=== PATIENT | female | born 1960 | race Caucasian/White ===

== ENCOUNTER 2016-09-12 13:26 | Emergency (ER) | payer MEDICAID ==
[~2016-09-12] VITALS: Ht 157.5 cm; Wt 53.2 kg
[~2016-09-12 13:26] MED LIST: ACET325 PO; ALPR0.5T99 PO; BACT800T5 PO; BUSP5TAB3 PO; CEPH500C3 PO; CYMB30CA PO; IBUP800T23 PO; LAMO150 PO; LURA20TA PO; LYRI150C PO; PENT1TAB8 PO; PERC5TAB12 PO; REST15CA PO; TRAZ50TA4 PO
[2016-09-12 13:34] VITALS: BP 180/79; PULSE 98; RESP 18; TEMP 97.9
[2016-09-12] MEDS ORDERED: ONDANSETRON HCL 4 MG/2 ML VIAL IVP ONE (13:45)
[2016-09-12] MEDS ORDERED: MORPHINE SULFATE 4 MG/ML INJ IV PUSH ONE (13:45)
[2016-09-12] MEDS ORDERED: SODIUM CHLORIDE 0.9% FLUSH 5 ML FLUSH IVF PRN (13:45)
[2016-09-12] MEDS ORDERED: SODIUM CHLOR 0.9% 1000 ML INJ 1,000 ML IV SCH (13:45)
[2016-09-12 13:57] VITALS: BP 179/85; PULSE 98; RESP 18; TEMP 97.9; O2SAT 97
[2016-09-12 13:58] VITALS: O2SAT 97
[2016-09-12 14:27] LABS: AUTOMATED NEUTROPHIL # 4.5 TH/MM3 (1.8-7.7); BASOPHIL # 0.1 TH/MM3 (0-0.2); BASOPHIL % 1.1 % (0.0-2.0); EOSINOPHIL % 0.1 % (0.0-4.0); HEMATOCRIT 43.8 % (35.0-46.0); HEMO FLAGS DIFF FINAL; LYMPH % 19.5 % (9.0-44.0); LYMPHOCYTE # 1.2 TH/MM3 (1.0-4.8); MEAN CORPUSCULAR HEMOGLOBIN 30.5 PG (27.0-34.0); MEAN CORPUSCULAR HGB CONC 33.5 % (32.0-36.0); MONO % 8.2 % (0.0-8.0); NEUT % 71.1 % (16.0-70.0); PLATELET COUNT 271 TH/MM3 (150-450); RED BLOOD COUNT 4.81 MIL/MM3 (4.00-5.30); RED CELL DISTRIBUTION WIDTH 13.6 % (11.6-17.2); WHITE BLOOD COUNT 6.4 TH/MM3 (4.0-11.0)
[2016-09-12 14:30] VITALS: BP 164/87; PULSE 56; RESP 16; O2SAT 98
[2016-09-12] MEDS ORDERED: DIATRIZOATE MEGLUM/DIATRIZOATE SOD 9 ML CUP ONE (14:36)
[2016-09-12 14:44] LABS: ALT (GPT) 10 U/L (10-53); ANION GAP 16 MEQ/L (5-15); AST (GOT) 7 U/L (15-37); BICARBONATE 17.3 MEQ/L (21.0-32.0); BLOOD UREA NITROGEN 6 MG/DL (7-18); CHLORIDE 108 MEQ/L (98-107); GLOMERULAR FILTRATION RATE 93 ML/MIN (>89); POTASSIUM 3.5 MEQ/L (3.5-5.1); SODIUM (NA) 141 MEQ/L (136-145)
[2016-09-12 14:47] LABS: ALKALINE PHOSPHATASE 86 U/L (45-117); TOTAL BILIRUBIN ADULT 0.4 MG/DL (0.2-1.0)
[2016-09-12] MEDS ORDERED: CYMB30CA PO (15:25)
[2016-09-12] MEDS ORDERED: ALPR0.5T3 PO (15:25)
[2016-09-12] MEDS ORDERED: LYRI150C PO (15:25)
[2016-09-12] MEDS ORDERED: LURA20TA PO (15:25)
[2016-09-12] MEDS ORDERED: REST30CA PO (15:25)
[2016-09-12] MEDS ORDERED: BUSP5TAB PO (15:25)
[2016-09-12] MEDS ORDERED: LAMO150 PO (15:25)
[2016-09-12 15:32] LABS: BLOOD, URINE NEG (NEG); COMMENT (UR) CULT NOT INDICATED; CULTURE IF INDICATED CULT NOT INDICATED; GLUCOSE,URINE NEG (NEG); HYALINE CAST, URINE 2 /lpf (RARE); KETONE, URINE 150 mg/dL (NEG); MUCUS URINE FEW /lpf (OCC); NITRITE,URINE NEG (NEG); PH, URINE 5.5 (5.0-8.5); SQUAMOUS EPITHELIAL CELL URINE 3 /hpf (0-5); URINE COLOR YELLOW (YELLW/STRAW)
--- NOTE | 2016-09-12 15:43 | PD ---
HPI Chief Complaint: Abdominal Pain Time Seen by Provider: 13:41 Travel History International Travel<30 days: No Contact w/Intl Traveler<30days: No Traveled to known affect area: No History of Present Illness HPI Patient is a 55-year-old female presents emergency department with complaint of abdominal pain. Patient had a breast abscess around the right nipple in April. This was further treated with surgery in August. Patient states that ever since she has not felt well with generalized weakness, fatigue and malaise. For the last several days, 3-5 she has had diffuse crampy abdominal discomfort with nausea, vomiting. She has been having bowel movements, but states that these are smaller she has not been having much for oral intake. Anorexia. No hematemesis or hematochezia. Pain is crampy in nature. She's had a previous cholecystectomy and left salpingectomy oophorectomy. PFSH Past Medical History Hx Anticoagulant Therapy: No Bipolar Disorder: Yes Anxiety: Yes Depression: Yes Cancer: Yes (poss cervical) Cardiovascular Problems: Yes (HTN, CHOL) Diabetes: No Diminished Hearing: No Gastrointestinal Disorders: No Headaches: Yes Hypertension: No Implanted Vascular Access Dvce: No Musculoskeletal: Yes (chronic neck pain) ?: Not Menopausal: Yes : 0 Tubal Ligation: Yes Past Surgical History Cholecystectomy: Yes Neurologic Surgery: No Oral Surgery: Yes Tonsillectomy: Yes Other Surgery: Yes (left ovary removed) Social History Alcohol Use: No Tobacco Use: Yes Substance Use: No Allergies-Medications (Allergen,Severity, Reaction): Coded Allergies: Doxycycline (Verified Allergy, Severe, VOMITING, 09/12/16) Penicillin (Verified Allergy, Severe, FAMILY HISTORY ONLY! PATIENT HAS NO ACTUAL ALLERGY., 09/12/16) Darvocet-N 100 (Verified Adverse Reaction, Severe, N&V, 09/12/16) Reported Meds & Prescriptions Reported Meds & Active Scripts Active Phenergan (Promethazine HCl) 25 Mg Tab 25 Mg PO Q6H PRN Reported Restoril (Temazepam) 30 Mg Cap 30 Mg PO HS PRN Lyrica (Pregabalin) 150 Mg Cap 150 Mg PO BID Latuda (Lurasidone) 20 Mg Tab 20 Mg PO DAILY Lamictal (Lamotrigine) 150 Mg Tab 150 Mg PO BID Cymbalta DR (Duloxetine HCl) 30 Mg Capdr 30 Mg PO DAILY Buspirone (Buspirone HCl) 5 Mg Tab 5 Mg PO BID Alprazolam 0.5 Mg Tab 0.5 Mg PO Q6H PRN Review of Systems Except as stated in HPI: all other systems reviewed are Neg Physical Exam Narrative GENERAL: Well-appearing female in no acute distress SKIN: Warm and dry. Right breast with dried scab around the inferior aspect of the nipple but no erythema, fluctuance, mass. HEAD: Normocephalic. EYES: No scleral icterus. No injection or drainage. ENT: No nasal bleeding or discharge. Mucous membranes pink and moist. NECK: Supple CARDIOVASCULAR: Regular rate and rhythm. No murmur appreciated. RESPIRATORY: No accessory muscle use. Clear to auscultation. Breath sounds equal bilaterally. GASTROINTESTINAL: Abdomen soft, mild periumbilical abdominal tenderness to palpation without rebound or guarding, nondistended. No hepatosplenomegaly MUSCULOSKELETAL: No obvious deformities. No edema. NEUROLOGICAL: Awake and alert. Normal speech. PSYCHIATRIC: Appropriate mood and affect; insight and judgment normal. Data Data Last Documented VS Vital Signs Date Time Temp Pulse Resp B/P Pulse Ox O2 Delivery O2 Flow Rate FiO2 09/12/16 16:58 62 16 142/70 97 09/12/16 16:47 Room Air 09/12/16 13:57 97.9 Orders Complete Blood Count With Diff (09/12/16 13:45) Comprehensive Metabolic Panel (09/12/16 13:45) Lipase (09/12/16 13:45) Urinalysis - C+S If Indicated (09/12/16 13:45) Ct Abd/Pel W Iv Contrast(Rout) (09/12/16 13:45) Iv Access Insert/Monitor (09/12/16 13:45) Ecg Monitoring (09/12/16 13:45) Oximetry (09/12/16 13:45) Morphine Inj (Morphine Inj) (09/12/16 13:45) Ondansetron Inj (Zofran Inj) (09/12/16 13:45) Sodium Chlor 0.9% 1000 Ml Inj (Ns 1000 M (09/12/16 13:45) Sodium Chloride 0.9% Flush (Ns Flush) (09/12/16 13:45) Oral Contrast - Adult (09/12/16 13:48) Oral Contrast - Adult (09/12/16 14:22) Diatrizoate Liq (Md Llamas Liq) (09/12/16 14:36) Cath For Specimen (09/12/16 14:58) Iohexol 350 Inj (Omnipaque 350 Inj) (09/12/16 16:45) Ondansetron Inj (Zofran Inj) (09/12/16 17:00) Ketorolac Inj (Toradol Inj) (09/12/16 17:15) Labs Laboratory Tests Test 09/12/16 09/12/16 14:11 15:07 White Blood Count 6.4 TH/MM3 Red Blood Count 4.81 MIL/MM3 Hemoglobin 14.7 GM/DL Hematocrit 43.8 % Mean Corpuscular Volume 91.0 FL Mean Corpuscular Hemoglobin 30.5 PG Mean Corpuscular Hemoglobin 33.5 % Concent Red Cell Distribution Width 13.6 % Platelet Count 271 TH/MM3 Mean Platelet Volume 7.9 FL Neutrophils (%) (Auto) 71.1 % Lymphocytes (%) (Auto) 19.5 % Monocytes (%) (Auto) 8.2 % Eosinophils (%) (Auto) 0.1 % Basophils (%) (Auto) 1.1 % Neutrophils # (Auto) 4.5 TH/MM3 Lymphocytes # (Auto) 1.2 TH/MM3 Monocytes # (Auto) 0.5 TH/MM3 Eosinophils # (Auto) 0.0 TH/MM3 Basophils # (Auto) 0.1 TH/MM3 CBC Comment DIFF FINAL Differential Comment Sodium Level 141 MEQ/L Potassium Level 3.5 MEQ/L Chloride Level 108 MEQ/L Carbon Dioxide Level 17.3 MEQ/L Anion Gap 16 MEQ/L Blood Urea Nitrogen 6 MG/DL Creatinine 0.66 MG/DL Estimat Glomerular Filtration 93 ML/MIN Rate Random Glucose 70 MG/DL Calcium Level 8.5 MG/DL Total Bilirubin 0.4 MG/DL Aspartate Amino Transf 7 U/L (AST/SGOT) Alanine Aminotransferase 10 U/L (ALT/SGPT) Alkaline Phosphatase 86 U/L Total Protein 6.9 GM/DL Albumin 3.8 GM/DL Lipase 71 U/L Urine Color YELLOW Urine Turbidity CLEAR Urine pH 5.5 Urine Specific [place] 1.030 Urine Protein 30 mg/dL Urine Glucose (UA) NEG mg/dL Urine Ketones 150 mg/dL Urine Occult Blood NEG Urine Nitrite NEG Urine Bilirubin NEG Urine Urobilinogen LESS THAN 2.0 MG/DL Urine Leukocyte Esterase NEG Urine RBC 3 /hpf Urine WBC 2 /hpf Urine Squamous Epithelial 3 /hpf Cells Urine Hyaline Casts 2 /lpf Urine Mucus FEW /lpf Microscopic Urinalysis Comment CULT NOT INDICATED MDM Medical Decision Making Medical Screen Exam Complete: Yes Emergency Medical Condition: Yes Medical Record Reviewed: Yes Differential Diagnosis 55-year-old female with generalized fatigue, malaise, anorexia with nausea vomiting diarrhea and diffuse crampy abdominal discomfort for the last 3 days. Differential includes gastritis, pancreatitis, hepatobiliary pathology, appendicitis, bowel obstruction, gastroenteritis. Narrative Course Patient placed on monitor, IV established and blood obtained. Given 1 L normal saline bolus, 4 mg morphine, 4 mg Zofran. CBC, CMP, lipase, urinalysis were obtained and notable for mild acidosis with bicarbonate 17.3. CT abdomen and pelvis showed no acute abnormalities. There are several enhancing liver lesions measuring up to 15 mm, nonspecific but metastatic disease to be on the differential. Nodularity of the left adrenal gland. Scattered 12 mm or last hepatic hypodensities. Attempted further characterization with nonemergent MRI of the abdomen is recommended. Biliary distention, presumably reservoir type effect after cholecystectomy. Clinically there is no evidence of biliary obstruction, laboratory results are unremarkable. Patient was able to tolerate oral challenge and will be discharged home. Diagnosis Primary Impression: Abdominal pain Qualified Code: R10.84 - Generalized abdominal pain Additional Impressions: Nausea and vomiting Qualified Code: R11.2 - Non-intractable vomiting with nausea, unspecified vomiting type Liver lesion Referrals: Primary Care Physician call for appointment Additional Instructions: Nausea medications as prescribed. Follow-up for outpatient MRI of the abdomen to evaluate liver lesions as discussed. Your primary care physician can order this study. Med/Other Pt SpecificInfo: Prescription(s) given Scripts Dicyclomine (Bentyl)20 Mg Tab20 Mg PO TID PRN (Bowel Management) #15 TAB Ref 0 Prov:Liza Vaughn MD 09/12/16 Promethazine (Phenergan)25 Mg Tab25 Mg PO Q6H PRN (Nausea/Vomiting) #10 TAB Ref 0 Prov:Liza Vaughn MD 09/12/16 Disposition: 01 DISCHARGE HOME Condition: Stable Liza Vaughn MD Sep 12, 2016 15:43
[2016-09-12] MEDS ORDERED: IOHEXOL 350 MG/ML 10 ML VIAL (for RAD DIAG) IV ONE (16:45)
[2016-09-12 16:47] VITALS: BP 162/87; PULSE 84; RESP 18; O2SAT 96
[2016-09-12 16:58] VITALS: BP 142/70; PULSE 62; RESP 16; O2SAT 97
[2016-09-12] MEDS ORDERED: ONDANSETRON HCL 4 MG/2 ML VIAL IV PUSH ONE (17:00)
--- NOTE | 2016-09-12 17:06 | RADRPT ---
EXAM DATE/TIME: 09/12/2016 16:42 [facility] COMPARISON: No previous studies available for comparison. INDICATIONS : Abdomen pain. IV CONTRAST: 77 cc Omnipaque 350 (iohexol) IV ORAL CONTRAST: Partial prescribed oral contrast ingested. RADIATION DOSE: 4.78 CTDIvol (mGy) MEDICAL HISTORY : Hypertension. SURGICAL HISTORY : Cholecystectomy. Tubal ligation.Oophorectomy. ENCOUNTER: Initial ACUITY: 1 day PAIN SCALE: 5/10 LOCATION: Bilateral abdomen. TECHNIQUE: Volumetric scanning of the abdomen and pelvis was performed. Using automated exposure control and ad justment of the mA and/or kV according to patient size, radiation dose was kept as low as reasonably achievable to obtain optimal diagnostic quality images. FINDINGS: LOWER LUNGS: The visualized lower lungs are clear. LIVER: There hyperenhancing lesions of the liver, one measuring 15 mm posterior segment of the right hepatic lobe, 15 mm inferiorly of the anterior segment of the right hepatic lobe and 12 mm medial segment of the left hepatic lobe. There are several scattered hepatic hypodensities as well, the largest inferi frantz the right hepatic lobe measures about 14 mm in size. Patient has had previous cholecystectomy. C ommon bile duct measures 12 mm at the lower imelda hepatis and there is mild intrahepatic biliary dist ention seen as well. SPLEEN: Normal size without lesion. PANCREAS: Within normal limits. KIDNEYS: Normal in size and shape. There is no mass, stone or hydronephrosis. ADRENAL GLANDS: 11 x 18 mm nodularity of the left adrenal gland. Right adrenal gland is normal. VASCULAR: There is no aortic aneurysm. BOWEL/MESENTERY: The stomach, small bowel, and colon demonstrate no acute abnormality. There is no free intraperitone al air or fluid. ABDOMINAL WALL: Within normal limits. RETROPERITONEUM: There is no lymphadenopathy. BLADDER: No wall thickening or mass. REPRODUCTIVE: Within normal limits. INGUINAL: There is no lymphadenopathy or hernia. MUSCULOSKELETAL: No acute bony abnormality demonstrated. CONCLUSION: 1. No obstruction or acute inflammatory changes. 2. Several enhancing liver lesions measuring up to 15 mm in size, nonspecific but metastatic disease would be in the differential. There is also nodularity of the left adrenal gland. Scattered 12 mm or less hepatic hypodensities are also noted. Attempted further characterization with nonemergent MRI of the abdomen recommended. 3. Biliary distention, presumably reservoir type effect after cholecystectomy but please correlate cl inically and with any laboratory evidence of biliary obstruction. Reymundo Mclaughlin MD on September 12, 2016 at 16:59 Board Certified Radiologist. This report was verified electronically.
[2016-09-12] MEDS ORDERED: KETOROLAC TROMETHAMINE 30 MG/ML (IVP) VIAL IV PUSH ONE (17:15)
[2016-09-12] MEDS ORDERED: PROM25TA5 PO (17:29)
[2016-09-12] MEDS ORDERED: BENT20TA PO (17:49)
== END 2016-09-12 18:17 | disposition home or self-care (01) ==
LOC: NEPC 13:26
DX: R10.84 Generalized abdominal pain (principal); K76.9 Liver disease, unspecified; I10 Essential (primary) hypertension
CPT/HCPCS: 74177; 80053; 81001; 83690; 85025; 96361; 96374; 96375; 96376; 99284; J1885; J2270; J2405; J7030; Q9963; Q9967

== ENCOUNTER 2016-11-07 10:55 | Inpatient (IN) | payer MEDICAID ==
[~2016-11-07] VITALS: Ht 157.5 cm; Wt 53.0 kg
[~2016-11-07 10:55] MED LIST changes: -ACET325 PO; +ALPR0.5T3 PO; -ALPR0.5T99 PO; -BACT800T5 PO; +BENT20TA PO; +BUSP5TAB PO; -BUSP5TAB3 PO; -CEPH500C3 PO; -IBUP800T23 PO; -PENT1TAB8 PO; -PERC5TAB12 PO; +PROM25TA5 PO; -REST15CA PO; +REST30CA PO; -TRAZ50TA4 PO
[2016-11-07 10:58] VITALS: BP 162/84; PULSE 64; RESP 26; TEMP 97.8; O2SAT 97
--- NOTE | 2016-11-07 11:09 | PD ---
HPI Chief Complaint: GI Complaint Time Seen by Provider: 11:09 Travel History International Travel<30 days: No Contact w/Intl Traveler<30days: No Traveled to known affect area: No History of Present Illness HPI 56-year-old female PMH of anxiety, chronic back pain presents to the ED for evaluation of less than 24 hour history of abdominal pain, nausea, nonbloody, nonbilious vomiting, diarrhea. Patient states that symptoms onset last night after eating "a piece of meat my sister cooked." She endorses decreased appetite, malaise. She denies fever, chills, chest pain, palpitations, dysuria , melena or hematochezia. Last episode of vomiting around 10 AM. Patient also complains of pain of the right areola. She states that she had a cyst removed and is concerned that she may have an infection in the wound. Patient states she's been unable to take any of her medications today. She tried taking a dose of Phenergan last night but states that she immediately threw it up. PFSH Past Medical History Hx Anticoagulant Therapy: No Bipolar Disorder: Yes Anxiety: Yes Depression: Yes Cancer: Yes (poss cervical) Cardiovascular Problems: Yes (HTN, CHOL) Diabetes: No Diminished Hearing: No Gastrointestinal Disorders: No Headaches: Yes Hypertension: No Implanted Vascular Access Dvce: No Musculoskeletal: Yes (chronic neck pain) Menopausal: Yes : 0 Tubal Ligation: Yes Past Surgical History Cholecystectomy: Yes Hysterectomy: Yes (PARTIAL ) Neurologic Surgery: No Oral Surgery: Yes Tonsillectomy: Yes Other Surgery: Yes (left ovary removed) Social History Alcohol Use: No Tobacco Use: Yes Substance Use: No Allergies-Medications (Allergen,Severity, Reaction): Coded Allergies: Doxycycline (Verified Allergy, Severe, VOMITING, 11/07/16) Penicillin (Verified Allergy, Severe, FAMILY HISTORY ONLY! PATIENT HAS NO ACTUAL ALLERGY., 11/07/16) Darvocet-N 100 (Verified Adverse Reaction, Severe, N&V, 11/07/16) Reported Meds & Prescriptions Reported Meds & Active Scripts Active Bentyl (Dicyclomine HCl) 20 Mg Tab 20 Mg PO TID PRN Phenergan (Promethazine HCl) 25 Mg Tab 25 Mg PO Q6H PRN Reported [Codeine With Tylenol] Restoril (Temazepam) 30 Mg Cap 30 Mg PO HS PRN Lyrica (Pregabalin) 150 Mg Cap 150 Mg PO BID Latuda (Lurasidone) 20 Mg Tab 20 Mg PO DAILY Lamictal (Lamotrigine) 150 Mg Tab 150 Mg PO BID Cymbalta DR (Duloxetine HCl) 30 Mg Capdr 30 Mg PO DAILY Buspirone (Buspirone HCl) 5 Mg Tab 5 Mg PO BID Alprazolam 0.5 Mg Tab 0.5 Mg PO Q6H PRN Review of Systems Except as stated in HPI: all other systems reviewed are Neg Physical Exam Narrative GENERAL: Well-nourished, well-developed petite, anxious white female in no acute distress. SKIN: Warm and dry. There is a well healing circumareolar scar of the right breast. No erythema, tenderness, warmth, drainage. HEAD: Normocephalic. EYES: No scleral icterus. No injection or drainage. PERRLA. EOMI. ENT: Oropharynx dry. No erythema or edema. NECK: Supple, trachea midline. No JVD or lymphadenopathy. No midline tenderness to palpation. No limitations to range of motion. CARDIOVASCULAR: Regular rate and rhythm without murmurs, gallops, or rubs. 2+ DP and radial pulses bilaterally. RESPIRATORY: Breath sounds clear and equal bilaterally. No accessory muscle use. GASTROINTESTINAL: Abdomen soft, non-tender, nondistended. Hypoactive bowel sounds. MUSCULOSKELETAL: No cyanosis, or edema. NEUROLOGICAL: Awake and alert. Cranial nerves II through XII intact. Motor and sensory grossly within normal limits. Five out of 5 muscle strength in all muscle groups. Normal speech. BACK: No obvious deformity. No CVA tenderness. No midline tenderness. Tender to palpation of the paraspinal musculature in the mid thoracic area. Data Data Last Documented VS Vital Signs Date Time Temp Pulse Resp B/P Pulse Ox O2 Delivery O2 Flow Rate FiO2 11/07/16 13:21 59 24 180/77 96 Room Air 11/07/16 10:58 97.8 Orders Complete Blood Count With Diff (11/07/16 11:23) Comprehensive Metabolic Panel (11/07/16 11:23) Lipase (11/07/16 11:23) Lactic Acid (11/07/16 11:23) Urinalysis - C+S If Indicated (11/07/16 11:23) Iv Access Insert/Monitor (11/07/16 11:23) Ecg Monitoring (11/07/16 11:23) Oximetry (11/07/16 11:23) Sodium Chlor 0.9% 1000 Ml Inj (Ns 1000 M (11/07/16 11:23) Sodium Chloride 0.9% Flush (Ns Flush) (11/07/16 11:30) Potassium Chlor 20 Meq Premix (Kcl 20 Me (11/07/16 12:30) Potassium Chloride (Kcl) (11/07/16 12:30) Calcium Carbonate Chew (Tums Chew) (11/07/16 12:30) Tramadol (Ultram) (11/07/16 13:00) Sodium Chlor 0.9% 1... W/Potassium Chlor (11/07/16 14:00) Ondansetron Inj (Zofran Inj) (11/07/16 14:00) Vital Signs (Adult) EFRAIN.Q4H (11/07/16 13:51) Basic Metabolic Panel (Bmp) (11/07/16 15:00) Labs Laboratory Tests Test 11/07/16 11/07/16 11:20 12:05 White Blood Count 8.2 TH/MM3 Red Blood Count 4.85 MIL/MM3 Hemoglobin 15.0 GM/DL Hematocrit 44.1 % Mean Corpuscular Volume 91.0 FL Mean Corpuscular Hemoglobin 31.0 PG Mean Corpuscular Hemoglobin 34.1 % Concent Red Cell Distribution Width 13.2 % Platelet Count 320 TH/MM3 Mean Platelet Volume 8.4 FL Neutrophils (%) (Auto) 80.9 % Lymphocytes (%) (Auto) 15.0 % Monocytes (%) (Auto) 3.6 % Eosinophils (%) (Auto) 0.0 % Basophils (%) (Auto) 0.5 % Neutrophils # (Auto) 6.7 TH/MM3 Lymphocytes # (Auto) 1.2 TH/MM3 Monocytes # (Auto) 0.3 TH/MM3 Eosinophils # (Auto) 0.0 TH/MM3 Basophils # (Auto) 0.0 TH/MM3 CBC Comment DIFF FINAL Differential Comment Sodium Level 148 MEQ/L Potassium Level 2.0 MEQ/L Chloride Level 120 MEQ/L Carbon Dioxide Level 15.6 MEQ/L Anion Gap 12 MEQ/L Blood Urea Nitrogen 10 MG/DL Creatinine 0.29 MG/DL Estimat Glomerular Filtration 238 ML/MIN Rate Random Glucose 74 MG/DL Lactic Acid Level 1.9 mmol/L Calcium Level 5.2 MG/DL Protein Corrected Calcium 6.4 MG/DL Total Bilirubin 0.2 MG/DL Aspartate Amino Transf 4 U/L (AST/SGOT) Alanine Aminotransferase 7 U/L (ALT/SGPT) Alkaline Phosphatase 50 U/L Total Protein 4.3 GM/DL Albumin 2.3 GM/DL Lipase 65 U/L Urine Color YELLOW Urine Turbidity HAZY Urine pH 6.0 Urine Specific [place] 1.023 Urine Protein 30 mg/dL Urine Glucose (UA) NEG mg/dL Urine Ketones 150 mg/dL Urine Occult Blood SMALL Urine Nitrite NEG Urine Bilirubin NEG Urine Urobilinogen 2.0 MG/DL Urine Leukocyte Esterase NEG Urine RBC 6 /hpf Urine WBC 2 /hpf Urine Squamous Epithelial 3 /hpf Cells Urine Mucus FEW /lpf Microscopic Urinalysis Comment CULT NOT INDICATED MDM Medical Decision Making Medical Screen Exam Complete: Yes Emergency Medical Condition: Yes Differential Diagnosis Gastroenteritis versus viral syndrome versus electrolyte abnormality versus dehydration versus other Narrative Course 56-year-old female PMH of anxiety, chronic back pain presents to the ED for evaluation of less than 24 hour history of abdominal pain, nausea, nonbloody, nonbilious vomiting, diarrhea. Patient states that symptoms onset last night after eating "a piece of meat my sister cooked." She endorses decreased appetite, malaise. She denies fever, chills, chest pain, palpitations, dysuria , melena or hematochezia. Last episode of vomiting around 10 AM. Patient also complains of pain of the right areola. She states that she had a cyst removed, is concerned about healing. Vitals reviewed. Physical exam reveals a petite white female in no acute distress. Mucous membranes are dry. There is a well healing circumareolar scar of the right breast, no signs of infection. Abdominal exam benign. Patient was administered IV zofran and a liter of NS. CBC: WBC 8.2. Hemoglobin 15.0. CMP sodium 148, chloride 120, protein corrected calcium 6.4, potassium 2.0. Lactic acid 1.9. Lipase 65 UA: Hazy, positive for ketones, 30 protein. No culture indicated. No further episodes of vomiting or diarrhea while being evaluated in the ED. Patient was administered 40 milliequivalents potassium by mouth, 20 mEq IV. She was also administered 500 mg calcium carbonate and PO tramadol. I discussed the results of the workup with Dr. Harris and the patient. We recommended admission to the hospital for serial lab work. I spoke with Dr. Chavis who agrees to accept this patient to the medical service. Please see medicine notes for disposition. Diagnosis Primary Impression: Hypokalemia Additional Impressions: Hypocalcemia Nausea & vomiting Qualified Code: R11.2 - Non-intractable vomiting with nausea, unspecified vomiting type Shirley Sánchez Nov 07, 2016 11:09
[2016-11-07] MEDS ORDERED: ACETAMINOPHEN (11:19)
[2016-11-07] MEDS ORDERED: CODEINE (11:19)
[2016-11-07] MEDS ORDERED: SODIUM CHLOR 0.9% 1000 ML INJ 1,000 ML IV SCH (11:23)
[2016-11-07] MEDS ORDERED: SODIUM CHLORIDE 0.9% FLUSH 5 ML FLUSH IVF PRN (11:30)
[2016-11-07 11:49] LABS: AUTOMATED NEUTROPHIL # 6.7 TH/MM3 (1.8-7.7); BASOPHIL % 0.5 % (0.0-2.0); HEMATOCRIT 44.1 % (35.0-46.0); HEMO FLAGS DIFF FINAL; LYMPHOCYTE # 1.2 TH/MM3 (1.0-4.8); MEAN CORPUSCULAR HGB CONC 34.1 % (32.0-36.0); MONO % 3.6 % (0.0-8.0); NEUT % 80.9 % (16.0-70.0); PLATELET COUNT 320 TH/MM3 (150-450); RED BLOOD COUNT 4.85 MIL/MM3 (4.00-5.30); RED CELL DISTRIBUTION WIDTH 13.2 % (11.6-17.2); WHITE BLOOD COUNT 8.2 TH/MM3 (4.0-11.0)
[2016-11-07 12:13] LABS: BICARBONATE 15.6 MEQ/L (21.0-32.0); TOTAL BILIRUBIN ADULT 0.2 MG/DL (0.2-1.0)
[2016-11-07 12:18] LABS: CALCIUM-PROTEIN CORRECTED 6.4 MG/DL (8.5-10.1)
[2016-11-07] MEDS ORDERED: CALCIUM CARBONATE 500 MG CHEWABLE TAB CHEW ONE (12:30)
[2016-11-07] MEDS ORDERED: POTASSIUM CHLOR 20 MEQ PREMIX 100 ML IV ONE (12:30)
[2016-11-07] MEDS ORDERED: POTASSIUM CHLORIDE 20 MEQ CONTROLLED RELEASE TAB PO SCH (12:30)
[2016-11-07 12:49] LABS: BLOOD, URINE SMALL (NEG); COMMENT (UR) CULT NOT INDICATED; CULTURE IF INDICATED CULT NOT INDICATED; GLUCOSE,URINE NEG (NEG); KETONE, URINE 150 mg/dL (NEG); MUCUS URINE FEW /lpf (OCC); NITRITE,URINE NEG (NEG); SQUAMOUS EPITHELIAL CELL URINE 3 /hpf (0-5); URINE COLOR YELLOW (YELLW/STRAW)
[2016-11-07] MEDS ORDERED: traMADol HCL 50 MG TAB PO ONE (13:00)
[2016-11-07 13:21] VITALS: BP 180/77; PULSE 59; RESP 24; O2SAT 96
[2016-11-07] MEDS ORDERED: ONDANSETRON HCL 4 MG/2 ML VIAL IV PUSH PRN (14:00)
[2016-11-07] MEDS ORDERED: POTASSIUM CHLORIDE INJ 20 MEQ in SODIUM CHLOR 0.9% 1000 ML INJ 1,000 ML IV SCH (14:00)
--- NOTE | 2016-11-07 14:14 | HHI.HP ---
[facility] Service [place] [facility] Primary Care Physician Fabien Parker Admission Diagnosis hypokalemia, hyponatremia, nausea, vomiting Diagnoses: (1) Hypokalemia Diagnosis: Principal (2) Hypocalcemia Diagnosis: Principal (3) Nausea & vomiting Diagnosis: Principal Chief Complaint: nausea and vomiting Travel History International Travel<30 Days: No Contact w/Intl Traveler <30 Da: No Traveled to Known Affected Are: No History of Present Illness patient is a 56 y/o female with history of bipolar disorder who presented to ER with nausea,vomiting and diarrhea. she says that symptoms started about a week ago. this was associated with mild on and off generalized abdominal pain. she says that she had a few loose bowel movements over night. she denies any vomiting blood or rectal bleed. there's no report of fever or chills. she says that she had a breast infected cyst that was drained a month ago. Review of Systems Constitutional: DENIES: Fever, Weight loss, Chills, Night Sweats Eyes: DENIES: Blurred vision, Diplopia, Vision loss, Double Vision Ears, nose, mouth, throat: DENIES: Tinnitus, Vertigo, Throat pain, Epistaxis Respiratory: DENIES: Apneas, Cough, Snoring, Wheezing, Hemoptysis, Sputum production, Shortness of breath Cardiovascular: DENIES: Chest pain, Palpitations, Syncope, Dyspnea on Exertion , PND, Lower Extremity Edema, Orthopnea, Claudication Gastrointestinal: COMPLAINS OF: Abdominal pain, Diarrhea, Nausea, Vomiting, DENIES: Black stools, Bloody stools, Constipation, Difficulty Swallowing, Anorexia Genitourinary: DENIES: Urinary frequency, Urgency, Hematuria, Dysuria Musculoskeletal: DENIES: Joint pain, Muscle aches, Stiffness, Joint Swelling Integumentary: DENIES: Rash Neurologic: DENIES: Abnormal gait, Headache, Localized weakness, Paresthesias, Seizures, Speech Problems, Tremor, Poor Balance Psychiatric: DENIES: Anxiety, Confusion, Mood changes, Depression, Hallucinations, Agitation, Suicidal Ideation, Homicidal Ideation, Delusions Past Family Social History Past Medical History bipolar disorder Past Surgical History breast cyst removal cholecystectomy left oophorectomy tonsillectomy Reported Medications Bentyl (Dicyclomine HCl) 20 Mg Tab 20 Mg PO TID PRN Phenergan (Promethazine HCl) 25 Mg Tab 25 Mg PO Q6H PRN [Codeine With Tylenol] Restoril (Temazepam) 30 Mg Cap 30 Mg PO HS PRN Lyrica (Pregabalin) 150 Mg Cap 150 Mg PO BID Latuda (Lurasidone) 20 Mg Tab 20 Mg PO DAILY Lamictal (Lamotrigine) 150 Mg Tab 150 Mg PO BID Cymbalta DR (Duloxetine HCl) 30 Mg Capdr 30 Mg PO DAILY Buspirone (Buspirone HCl) 5 Mg Tab 5 Mg PO BID Alprazolam 0.5 Mg Tab 0.5 Mg PO Q6H PRN Allergies: Coded Allergies: Doxycycline (Verified Allergy, Severe, VOMITING, 11/07/16) Penicillin (Verified Allergy, Severe, FAMILY HISTORY ONLY! PATIENT HAS NO ACTUAL ALLERGY., 11/07/16) Darvocet-N 100 (Verified Adverse Reaction, Severe, N&V, 11/07/16) Active Ordered Medications Current Medications Sodium Chloride (NS 1000 ml Inj) 1,000 ml @ 1,000 mls/hr Q1H IV Last administered on 11/07/16 11:36; Start 11/07/16 at 11:23; Stop 11/07/16 at 12:22 ; Status DC IV Flush 2 ml 2 ml UNSCH PRN IVF FLUSH AFTER USING IV ACCESS; Start 11/07/16 at 11:30 Potassium Chloride (KCl 20 Meq Premix Inj) 100 ml @ 50 mls/hr BOLUS ONCE IV Last administered on 11/07/16 12:42; Start 11/07/16 at 12:30; Stop 11/07/16 at 14:29 Potassium Chloride (KCl) 40 meq DAILY PO Last administered on 11/07/16 12:42; Start 11/07/16 at 12:30 Calcium Carbonate (Tums Chew) 500 mg ONCE ONCE CHEW Last administered on 12:49; Start 11/07/16 at 12:30; Stop 11/07/16 at 12:31; Status DC Tramadol HCl 50 mg 50 mg ONCE ONCE PO Last administered on 11/07/16 13:06; Start 11/07/16 at 13:00; Stop 11/07/16 at 13:02; Status DC Potassium Chloride/Sodium Chloride (KCl Inj/NS 1000 ml Inj) 1,010 ml @ 100 mls/ hr Q10H6M IV ; Start 11/07/16 at 14:00; Stop 11/07/16 at 14:00; Status DC Ondansetron HCl 4 mg 4 mg Q8HR PRN IV PUSH NAUSEA; Start 11/07/16 at 14:00 Potassium Chloride/Sodium Chloride (NS + KCl 20 Meq Inj) 1,000 ml @ 100 mls/hr Q10H IV ; Start 11/07/16 at 14:00 Family History not relevant to this admission. Social History smokes half a pack a day- doesn't drink. Physical Exam Vital Signs Vital Signs Date Time Temp Pulse Resp B/P Pulse Ox O2 Delivery O2 Flow Rate FiO2 11/07/16 13:21 59 24 180/77 96 Room Air 11/07/16 13:21 59 24 180/77 96 Room Air 11/07/16 10:58 97.8 64 26 162/84 97 Physical Exam GENERAL: This is a well-nourished, well-developed patient, in no apparent distress. SKIN: No rashes, ecchymoses or lesions. Cool and dry. HEAD: Atraumatic. Normocephalic. No temporal or scalp tenderness. EYES: Pupils equal round and reactive. Extraocular motions intact. No scleral icterus. No injection or drainage. ENT: Nose without bleeding, purulent drainage or septal hematoma. Throat without erythema, tonsillar hypertrophy or exudate. Uvula midline. Airway patent. NECK: Trachea midline. No JVD or lymphadenopathy. Supple, nontender, no meningeal signs. CARDIOVASCULAR: Regular rate and rhythm without murmurs, gallops, or rubs. RESPIRATORY: Clear to auscultation. Breath sounds equal bilaterally. No wheezes , rales, or rhonchi. GASTROINTESTINAL: Abdomen soft, non-tender, nondistended. No hepato-splenomegaly , or palpable masses. No guarding. MUSCULOSKELETAL: Extremities without clubbing, cyanosis, or edema. No joint tenderness, effusion, or edema noted. No calf tenderness. Negative Homans sign bilaterally. NEUROLOGICAL: Awake and alert. Cranial nerves II through XII intact. Motor and sensory grossly within normal limits. Five out of 5 muscle strength in all muscle groups. Normal speech. Laboratory Laboratory Tests Test 11/07/16 11/07/16 11:20 12:05 White Blood Count 8.2 Red Blood Count 4.85 Hemoglobin 15.0 Hematocrit 44.1 Mean Corpuscular Volume 91.0 Mean Corpuscular Hemoglobin 31.0 Mean Corpuscular Hemoglobin 34.1 Concent Red Cell Distribution Width 13.2 Platelet Count 320 Mean Platelet Volume 8.4 Neutrophils (%) (Auto) 80.9 Lymphocytes (%) (Auto) 15.0 Monocytes (%) (Auto) 3.6 Eosinophils (%) (Auto) 0.0 Basophils (%) (Auto) 0.5 Neutrophils # (Auto) 6.7 Lymphocytes # (Auto) 1.2 Monocytes # (Auto) 0.3 Eosinophils # (Auto) 0.0 Basophils # (Auto) 0.0 CBC Comment DIFF FINAL Differential Comment Sodium Level 148 Potassium Level 2.0 Chloride Level 120 Carbon Dioxide Level 15.6 Anion Gap 12 Blood Urea Nitrogen 10 Creatinine 0.29 Estimat Glomerular Filtration 238 Rate Random Glucose 74 Lactic Acid Level 1.9 Calcium Level 5.2 Protein Corrected Calcium 6.4 Total Bilirubin 0.2 Aspartate Amino Transf 4 (AST/SGOT) Alanine Aminotransferase 7 (ALT/SGPT) Alkaline Phosphatase 50 Total Protein 4.3 Albumin 2.3 Lipase 65 Urine Color YELLOW Urine Turbidity HAZY Urine pH 6.0 Urine Specific [place] 1.023 Urine Protein 30 Urine Glucose (UA) NEG Urine Ketones 150 Urine Occult Blood SMALL Urine Nitrite NEG Urine Bilirubin NEG Urine Urobilinogen 2.0 Urine Leukocyte Esterase NEG Urine RBC 6 Urine WBC 2 Urine Squamous Epithelial 3 Cells Urine Mucus FEW Microscopic Urinalysis Comment CULT NOT INDICATED Result Diagram: 11/07/16 1120 11/07/16 1120 Assessment and Plan Assessment and Plan A/P - gastroenteritis with hypokalemia and hypocalcemia start on liquid diet and advance as tolerated- continue IV fluid- antiemetics as needed will replace and monitor the electrolytes closely- -bipolar disorder; resume home meds Discussed Condition With ER physician and the patient. Problem Qualifiers (1) Nausea & vomiting: Qualified Code: R11.2 - Non-intractable vomiting with nausea, unspecified vomiting type Juan C Chavis MD Nov 07, 2016 14:14
[2016-11-07] MEDS ORDERED: PILL SPLITTER OTHER PRN (14:15)
[2016-11-07] MEDS: ALPRAZolam 0.5 MG TAB PO PRN (15:24)
[2016-11-07] MEDS: NS + KCL 20 MEQ INJ 1,000 ML IV SCH (15:25)
[2016-11-07 15:28] VITALS: BP 163/87; PULSE 70; RESP 20; O2SAT 96
[2016-11-07 15:45] LABS: BICARBONATE 25.1 MEQ/L (21.0-32.0); POTASSIUM 4.6 MEQ/L (3.5-5.1)
[2016-11-07 16:39] VITALS: BP 162/75; PULSE 68; RESP 18; TEMP 96.3; O2SAT 98
[2016-11-07 18:53] VITALS: BP 158/84; PULSE 61; RESP 12; TEMP 98.4
[2016-11-07 21:53] VITALS: BP 155/78; PULSE 78; RESP 20; TEMP 98.2; O2SAT 98
[2016-11-07] MEDS: PREGABALIN 75 MG CAP PO SCH (21:57)
[2016-11-07] MEDS: lamoTRIgine 100 MG TAB PO SCH (21:58)
[2016-11-08] VITALS: BP 152/78; PULSE 74; RESP 21; TEMP 98.8; O2SAT 98
[2016-11-08] MEDS: ALPRAZolam 0.5 MG TAB PO PRN (00:30)
[2016-11-08 03:35] VITALS: BP 148/74; PULSE 59; RESP 18; TEMP 98.8; O2SAT 98
[2016-11-08] MEDS ORDERED: KETOROLAC TROMETHAMINE 30 MG/ML (IVP) VIAL IV PUSH ONE (04:15)
[2016-11-08 05:07] LABS: POTASSIUM 4.2 MEQ/L (3.5-5.1)
[2016-11-08] MEDS: NS + KCL 20 MEQ INJ 1,000 ML IV SCH ×2 (07:33)
[2016-11-08 08:19] VITALS: BP 124/88; PULSE 65; RESP 20; TEMP 97.6; O2SAT 98
[2016-11-08] MEDS ORDERED: LURASIDONE 40 MG TAB PO SCH (09:00)
[2016-11-08] MEDS ORDERED: DULoxetine HCl DR 30 MG CAP PO SCH (09:00)
[2016-11-08] MEDS: PREGABALIN 75 MG CAP PO SCH (09:08)
[2016-11-08] MEDS: lamoTRIgine 100 MG TAB PO SCH (09:09)
[2016-11-08 11:44] VITALS: BP 128/74; PULSE 72; RESP 18; O2SAT 95
--- NOTE | 2016-11-08 12:13 | HHI.PR ---
Subjective Remarks nausea and vomiting better today. complaining of some back pain. wants to try some solid food. d/w the RN. Objective Vitals Vital Signs Date Time Temp Pulse Resp B/P Pulse Ox O2 Delivery O2 Flow Rate FiO2 11/08/16 11:44 72 18 128/74 95 11/08/16 10:14 20 11/08/16 08:19 97.6 65 20 124/88 98 11/08/16 05:16 12 11/08/16 03:35 98.8 59 18 148/74 98 11/08/16 00:00 98.8 74 21 152/78 98 11/07/16 21:53 98.2 78 20 155/78 98 11/07/16 18:53 98.4 61 12 158/84 11/07/16 16:39 96.3 68 18 162/75 98 11/07/16 15:28 70 20 163/87 96 Room Air 11/07/16 13:21 59 24 180/77 96 Room Air 11/07/16 13:21 59 24 180/77 96 Room Air Result Diagram: 11/07/16 1120 11/08/16 0408 Objective Remarks GENERAL: This is a well-nourished, well-developed patient, in no apparent distress. CARDIOVASCULAR: Regular rate and regular rhythm without murmurs, gallops, or rubs. RESPIRATORY: Clear to auscultation. Breath sounds equal bilaterally. No wheezes , rales, or rhonchi. GASTROINTESTINAL: Abdomen soft, non-tender, nondistended. Normal, active bowel sounds MUSCULOSKELETAL: Extremities without clubbing, cyanosis, or edema. NEURO: Alert & Oriented x4 to person, place, time, situation. Moves all ext x4 Procedures none Medications and IVs Current Medications Sodium Chloride (NS 1000 ml Inj) 1,000 ml @ 1,000 mls/hr Q1H IV Last administered on 11/07/16 11:36; Start 11/07/16 at 11:23; Stop 11/07/16 at 12:22 ; Status DC IV Flush 2 ml 2 ml UNSCH PRN IVF FLUSH AFTER USING IV ACCESS; Start 11/07/16 at 11:30 Potassium Chloride (KCl 20 Meq Premix Inj) 100 ml @ 50 mls/hr BOLUS ONCE IV Last administered on 11/07/16 12:42; Start 11/07/16 at 12:30; Stop 11/07/16 at 14:29; Status DC Potassium Chloride (KCl) 40 meq DAILY PO Last administered on 11/07/16 12:42; Start 11/07/16 at 12:30; Status Hold Calcium Carbonate (Tums Chew) 500 mg ONCE ONCE CHEW Last administered on 12:49; Start 11/07/16 at 12:30; Stop 11/07/16 at 12:31; Status DC Tramadol HCl 50 mg 50 mg ONCE ONCE PO Last administered on 11/07/16 13:06; Start 11/07/16 at 13:00; Stop 11/07/16 at 13:02; Status DC Potassium Chloride/Sodium Chloride (KCl Inj/NS 1000 ml Inj) 1,010 ml @ 100 mls/ hr Q10H6M IV ; Start 11/07/16 at 14:00; Stop 11/07/16 at 14:00; Status DC Ondansetron HCl 4 mg 4 mg Q8HR PRN IV PUSH NAUSEA Last administered on 22:19; Start 11/07/16 at 14:00 Potassium Chloride/Sodium Chloride (NS + KCl 20 Meq Inj) 1,000 ml @ 100 mls/hr Q10H IV Last administered on 11/08/16 07:33; Start 11/07/16 at 14:00 Alprazolam (Xanax) 0.5 mg Q6H PRN PO ANXIETY Last administered on 11/08/16 00: 30; Start 11/07/16 at 15:00 Duloxetine HCl (Cymbalta Dr) 30 mg DAILY PO Last administered on 11/08/16 09: 08; Start 11/08/16 at 09:00 Lamotrigine (LaMICtal) 150 mg BID PO Last administered on 11/08/16 09:09; Start 11/07/16 at 21:00 Lurasidone HCl (Latuda) 20 mg DAILY PO Last administered on 11/08/16 09:08; Start 11/08/16 at 09:00 Pregabalin (Lyrica) 150 mg BID PO Last administered on 11/08/16 09:08; Start 11/07/16 at 21:00 Miscellaneous (Pill Splitter) 1 ea UNSCH PRN OTHER SEE LABEL COMMENTS; Start at 14:15 Ketorolac Tromethamine (Toradol Inj) 15 mg ONCE ONCE IV PUSH Last administered on 11/08/16t 04:16; Start 11/08/16 at 04:15; Stop 11/08/16 at 04:16 ; Status DC A/P Assessment and Plan A/P - gastroenteritis with hypokalemia and hypocalcemia;clinically better and electrolytes have been replaced advance the diet- - continue IV fluid- antiemetics as needed -chronic back pain; continue with pain control. -bipolar disorder; resume home meds Discharge Planning dc home later today if tolerates the diet. see med list. f/u with pcp upon discharge. d/w the patient and RN. Juan C Chavis MD Nov 08, 2016 12:13
--- NOTE | 2016-11-08 12:15 | HHI.DCPOC ---
Discharge Care Plan Diagnosis: (1) Nausea & vomiting (2) Hypokalemia (3) Hypocalcemia Your Health Problems Are: Irregular Bowel Function Goals to Promote Your Health * To prevent worsening of your condition and complications * To maintain your health at the optimal level Directions to Meet Your Goals Take your medications as prescribed Follow your dietary instruction Follow activity as directed Keep your appointments as scheduled Take your immunizations and boosters as scheduled If your symptoms worsen call your PCP, if no PCP go to Urgent Care Center or Emergency Room Smoking is Dangerous to Your Health. Avoid second hand smoke Call the 24-hour hour crisis hotline for domestic abuse at Juan C Chavis MD Nov 08, 2016 12:15
--- NOTE | 2016-11-08 12:17 | HHI.DS ---
Discharge Summary Admission Date Nov 07, 2016 at 14:38 Discharge Date: Nov 08, 2016 Admitting Diagnosis hypokalemia, hyponatremia, nausea, vomiting (1) Hypokalemia ICD Code: E87.6 Diagnosis: Principal (2) Hypocalcemia ICD Code: E83.51 Diagnosis: Principal (3) Nausea & vomiting ICD Code: R11.2 Diagnosis: Principal Procedures none Brief History - From Admission patient is a 56 y/o female with history of bipolar disorder who presented to ER with nausea,vomiting and diarrhea. she says that symptoms started about a week ago. this was associated with mild on and off generalized abdominal pain. she says that she had a few loose bowel movements over night. she denies any vomiting blood or rectal bleed. there's no report of fever or chills. she says that she had a breast infected cyst that was drained a month ago. CBC/BMP: 11/07/16 1120 11/08/16 0408 Significant Findings Laboratory Tests Test 11/07/16 11/07/16 11/08/16 11:20 12:05 04:08 Neutrophils (%) (Auto) 80.9 % (16.0-70.0) Sodium Level 148 MEQ/L (136-145) Potassium Level 2.0 MEQ/L (3.5-5.1) Chloride Level 120 MEQ/L 112 MEQ/L (98-107) (98-107) Carbon Dioxide Level 15.6 MEQ/L (21.0-32.0) Creatinine 0.29 MG/DL (0.50-1.00) Calcium Level 5.2 MG/DL (8.5-10.1) Protein Corrected Calcium 6.4 MG/DL (8.5-10.1) Aspartate Amino Transf 4 U/L (15-37) (AST/SGOT) Alanine Aminotransferase 7 U/L (10-53) (ALT/SGPT) Total Protein 4.3 GM/DL (6.4-8.2) Albumin 2.3 GM/DL (3.4-5.0) Lipase 65 U/L (73-393) Urine Turbidity HAZY (CLEAR) Urine Protein 30 mg/dL (NEG-TRACE) Urine Ketones 150 mg/dL (NEG) Urine Occult Blood SMALL (NEG) Urine RBC 6 /hpf (0-3) Urine Mucus FEW /lpf (OCC) PE at Discharge GENERAL: This is a well-nourished, well-developed patient, in no apparent distress. CARDIOVASCULAR: Regular rate and regular rhythm without murmurs, gallops, or rubs. RESPIRATORY: Clear to auscultation. Breath sounds equal bilaterally. No wheezes , rales, or rhonchi. GASTROINTESTINAL: Abdomen soft, non-tender, nondistended. Normal, active bowel sounds MUSCULOSKELETAL: Extremities without clubbing, cyanosis, or edema. NEURO: Alert & Oriented x4 to person, place, time, situation. Moves all ext x4 Hospital Course - gastroenteritis with hypokalemia and hypocalcemia;clinically better and electrolytes have been replaced advance the diet- - continue IV fluid- antiemetics as needed -chronic back pain; continue with pain control. -bipolar disorder; resume home meds Pt Condition on Discharge: Fair Discharge Disposition: Discharge Home Discharge Time: <= 30 minutes Discharge Instructions DIET: Follow Instructions for: As Tolerated, No Restrictions Activities you can perform: Regular-No Restrictions Follow up Referrals: PCP Follow-up Continued Medications: Alprazolam (Alprazolam) 0.5 Mg Tab 0.5 MG PO Q6H PRN ANXIETY Ref 0 TAB Buspirone (Buspirone) 5 Mg Tab 5 MG PO BID Anxiety Ref 0 TAB Dicyclomine (Bentyl) 20 Mg Tab 20 MG PO TID PRN Bowel Management #15 Ref [address] (Cymbalta DR) 30 Mg Capdr 30 MG PO DAILY #30 Ref 0 CAP Lamotrigine (Lamictal) 150 Mg Tab 150 MG PO BID Control Seizures #60 Ref 0 TAB Lurasidone (Latuda) 20 Mg Tab 20 MG PO DAILY #30 Ref 0 TAB Pregabalin (Lyrica) 150 Mg Cap 150 MG PO BID #60 Ref 0 CAP Promethazine (Phenergan) 25 Mg Tab 25 MG PO Q6H PRN Nausea/Vomiting #10 Ref 0 TAB Temazepam (Restoril) 30 Mg Cap 30 MG PO HS PRN INSOMNIA #30 Ref 0 CAP ([Codeine With Tylenol]) Juan C Chavis MD Nov 08, 2016 12:17
[2016-11-08] MEDS ORDERED: ACETAMINOPHEN/CODEINE 300 MG/30 MG TAB PO PRN (13:00)
[2016-11-08 15:04] VITALS: RESP 20
== END 2016-11-08 17:02 | disposition home or self-care (01) | DRG 392 ==
LOC: NEPC 10:55 → NEDA 13:54 → OBSVTOIN 14:38 → NEPGCP 16:38
PROVIDERS: ADMIT Internal Medicine; ATTEND Internal Medicine
DX: K52.9 Noninfective gastroenteritis and colitis, unspecified (principal); E83.51 Hypocalcemia; I10 Essential (primary) hypertension; E87.6 Hypokalemia; F31.9 Bipolar disorder, unspecified; F17.210 Nicotine dependence, cigarettes, uncomplicated; M54.9 Dorsalgia, unspecified; G89.29 Other chronic pain
CPT/HCPCS: 80048; 80053; 81001; 83605; 83690; 85025; 96374; J1885; J2405; J3480; J7030

== ENCOUNTER 2017-05-14 19:36 | Observation (INO) | payer MEDICAID, OTHER ==
[~2017-05-14] VITALS: Ht 157.5 cm; Wt 55.5 kg
[~2017-05-14 19:36] MED LIST changes: +ACETAMINOPHEN; +CODEINE
[2017-05-14 19:47] VITALS: BP_SYST 99; BP_DIAS 5; BP_DIAS 58; PULSE 76; RESP 18; TEMP 97.3; O2SAT 98
[2017-05-14] MEDS ORDERED: SODIUM CHLOR 0.9% 1000 ML INJ 1,000 ML IV ONE (19:47)
[2017-05-14 19:52] VITALS: BP 99/58; PULSE 73; RESP 18; TEMP 97.3; O2SAT 98; O2SAT 99
--- NOTE | 2017-05-14 19:59 | PD ---
HPI Chief Complaint: Syncope/Near-Syncope Time Seen by Provider: 19:47 Travel History International Travel<30 days: No Contact w/Intl Traveler<30days: No History of Present Illness HPI Patient comes in after having a witnessed syncopal episode that occurred shortly prior to arrival. States that she had been sitting outside with family when she got up to walk inside and after walking to the front door she became very dizzy and had a syncopal episode. Patient's only complaint is head and neck pain. Patient had pain is where she reportedly hit her head. Patient denies being on any blood thinners, change in vision, chest pain pre-or post- syncopal episode, nausea, vomiting, numbness or tingling anywhere, loss or change in bowel or bladder, shortness of breath, or previous episodes like this. Patient states that she was started on lisinopril week ago secondary to having high blood pressure. EMS reports that upon arrival to palpation be hypotensive with systolic blood pressure being 57. After a liter of fluid patient's systolic blood pressure came up 77. Patient is awake and alert answering all questions appropriately. Moving all extremities. PFSH Past Medical History Hx Anticoagulant Therapy: No Asthma: No Blood Disorders: No Bipolar Disorder: Yes Anxiety: Yes Depression: Yes Heart Rhythm Problems: No Cancer: Yes (poss cervical) Cardiovascular Problems: Yes (HTN, CHOL) High Cholesterol: Yes Chemotherapy: No Chest Pain: No Congestive Heart Failure: No COPD: No Diabetes: No Diminished Hearing: No Endocrine: No Gastrointestinal Disorders: No Genitourinary: No Headaches: Yes Hypertension: No Immune Disorder: No Implanted Vascular Access Dvce: No Musculoskeletal: Yes (chronic neck pain) Neurologic: No Psychiatric: Yes (bi polar) Reproductive: No Respiratory: No Radiation Therapy: No Sleep Apnea: No Menopausal: Yes : 0 Tubal Ligation: Yes Past Surgical History Cholecystectomy: Yes Hysterectomy: Yes (PARTIAL ) Neurologic Surgery: No Oral Surgery: Yes Tonsillectomy: Yes Other Surgery: Yes (left ovary removed) Social History Alcohol Use: No Tobacco Use: Yes Substance Use: No Allergies-Medications (Allergen,Severity, Reaction): Coded Allergies: doxycycline (Unverified Allergy, Severe, VOMITING, 05/14/17) penicillin G (Unverified Allergy, Severe, FAMILY HISTORY ONLY! PATIENT HAS NO ACTUAL ALLERGY., 05/14/17) acetaminophen (Unverified Adverse Reaction, Severe, N&V, 05/14/17) propoxyphene (Unverified Adverse Reaction, Severe, N&V, 05/14/17) Reported Meds & Prescriptions Reported Meds & Active Scripts Active Reported Lisinopril 5 Mg Tab 5 Mg PO DAILY Lortab (Hydrocodone-Acetaminophen) 7.5-325 Mg Tab 1 Tab PO Q6H PRN Restoril (Temazepam) 30 Mg Cap 30 Mg PO HS PRN Lyrica (Pregabalin) 150 Mg Cap 150 Mg PO BID Latuda (Lurasidone) 20 Mg Tab 20 Mg PO DAILY Lamictal (Lamotrigine) 150 Mg Tab 150 Mg PO BID Cymbalta DR (Duloxetine HCl) 30 Mg Capdr 30 Mg PO DAILY Buspirone (Buspirone HCl) 5 Mg Tab 5 Mg PO BID Alprazolam 0.5 Mg Tab 0.5 Mg PO Q6H PRN Review of Systems Except as stated in HPI: all other systems reviewed are Neg Physical Exam Narrative GENERAL: Well-developed, well nourished, in no acute distress, and non-ill appearing. SKIN: Focused skin assessment warm and dry. HEAD: Atraumatic. Normocephalic. EYES: Pupils equal and round. EOMI. No scleral icterus. No injection or drainage. ENT: No nasal bleeding or discharge. Mucous membranes pink and moist. NECK: Trachea midline. C-collar in place. CARDIOVASCULAR: Regular rate and rhythm. No murmur appreciated. RESPIRATORY: No accessory muscle use. No respiratory distress. Clear to auscultation. Breath sounds equal bilaterally. GASTROINTESTINAL: Abdomen soft, non-tender, nondistended, and no guarding. Hepatic and splenic margins not palpable. No pulsatile mass. MUSCULOSKELETAL: No obvious deformities. No clubbing. No cyanosis. No edema. Full range of motion. No tenderness to palpation throughout thoracic and lumbar spinal column.Shoulder:FROM equal BL with passive flexion, extension, Abduction, Adduction, internal/external rotation, and pronation/supination. Sensation equal BL deltoid muscles. Pulses equal BL distal to injury. Capillary refill less than 2 seconds distal to injury and equal BL. FROM distal to injury and equal BL. Strength distal to injury equal BL. NV intact distal to injury equal BL. Flexion and extension of thumb equal BL. Equal strength and movement with abduction/adductions of BL fingers. Wrapping Clerk strength equal BL. NEUROLOGICAL: Awake and alert. No obvious cranial nerve deficits. Motor grossly within normal limits. Normal speech. PSYCHIATRIC: Appropriate mood and affect; insight and judgment normal. Data Data Last Documented VS Vital Signs Date Time Temp Pulse Resp B/P (MAP) Pulse Ox O2 Delivery O2 Flow Rate FiO2 05/14/17 20:19 73 18 99/58 (72) 74 21 101/58 (72) 05/14/17 19:52 98 Room Air 2.00 05/14/17 19:52 97.3 Orders Orders Electrocardiogram (05/14/17 19:47) Basic Metabolic Panel (Bmp) (05/14/17 19:47) Complete Blood Count With Diff (05/14/17 19:47) Magnesium (Mg) (05/14/17 19:47) Ckmb (Isoenzyme) Profile (05/14/17 19:47) Troponin I (05/14/17 19:47) Act Partial Throm Time (Ptt) (05/14/17 19:47) Prothrombin Time / Inr (Pt) (05/14/17 19:47) Urinalysis - C+S If Indicated (05/14/17 19:47) Chest, Single Ap (05/14/17 19:47) Ct Brain W/O Iv Contrast(Rout) (05/14/17 19:47) Ct Cerv Spine W/O Contrast (05/14/17 19:47) Ecg Monitoring (05/14/17 19:47) Iv Access Insert/Monitor (05/14/17 19:47) Oximetry (05/14/17 19:47) Sodium Chloride 0.9% Flush (Ns Flush) (05/14/17 20:00) Sodium Chlor 0.9% 1000 Ml Inj (Ns 1000 M (05/14/17 19:47) Orthostatic Vital Signs (05/14/17 19:47) Drug Screen, Random Urine (05/14/17 19:53) Alcohol (Ethanol) (05/14/17 19:53) Admit Order (Ed Use Only) (05/14/17 21:15) Labs Laboratory Tests Test 05/14/17 19:59 05/14/17 21:00 White Blood Count 8.1 TH/MM3 Red Blood Count 3.86 MIL/MM3 Hemoglobin 12.0 GM/DL Hematocrit 35.9 % Mean Corpuscular Volume 92.8 FL Mean Corpuscular Hemoglobin 30.9 PG Mean Corpuscular Hemoglobin Concent 33.3 % Red Cell Distribution Width 14.2 % Platelet Count 304 TH/MM3 Mean Platelet Volume 7.5 FL Neutrophils (%) (Auto) 47.0 % Lymphocytes (%) (Auto) 39.6 % Monocytes (%) (Auto) 10.2 % Eosinophils (%) (Auto) 2.3 % Basophils (%) (Auto) 0.9 % Neutrophils # (Auto) 3.8 TH/MM3 Lymphocytes # (Auto) 3.2 TH/MM3 Monocytes # (Auto) 0.8 TH/MM3 Eosinophils # (Auto) 0.2 TH/MM3 Basophils # (Auto) 0.1 TH/MM3 CBC Comment DIFF FINAL Differential Comment Prothrombin Time 10.2 SEC Prothromb Time International Ratio 0.9 RATIO Activated Partial Thromboplast Time 30.2 SEC Blood Urea Nitrogen 11 MG/DL Creatinine 0.86 MG/DL Random Glucose 94 MG/DL Calcium Level 7.6 MG/DL Magnesium Level 2.0 MG/DL Sodium Level 139 MEQ/L Potassium Level 3.9 MEQ/L Chloride Level 107 MEQ/L Carbon Dioxide Level 25.3 MEQ/L Anion Gap 7 MEQ/L Estimat Glomerular Filtration Rate 68 ML/MIN Total Creatine Kinase 37 U/L Troponin I LESS THAN 0.02 NG/ML Ethyl Alcohol Level LESS THAN 3 MG/DL Urine Color LIGHT-YELLOW Urine Turbidity CLEAR Urine pH 6.5 Urine Specific [place] 1.008 Urine Protein NEG mg/dL Urine Glucose (UA) NEG mg/dL Urine Ketones NEG mg/dL Urine Occult Blood TRACE Urine Nitrite NEG Urine Bilirubin NEG Urine Urobilinogen LESS THAN 2.0 MG/DL Urine Leukocyte Esterase NEG Urine RBC 4 /hpf Urine WBC 4 /hpf Urine Mucus FEW /lpf Microscopic Urinalysis Comment CULT NOT INDICATED MDM Medical Decision Making Medical Screen Exam Complete: Yes Emergency Medical Condition: Yes Interpretation(s) CT head read by the radiologist shows: Negative noncontrast CT. CT of cervical spine reviewed with radiology shows: Negative trauma CT. Chest x-ray read by the radiologist shows: No acute disease. EKG reviewed by Dr. Guerrero shows sinus rhythm with ventricular rate of 67. No STEMI. Differential Diagnosis Syncope, near-syncope, volume depletion, electrolyte abnormality, closed head injury, intracranial hemorrhage, fracture, strain, anemia, polypharmacy, other Narrative Course Patient was seen and examined. Initial laboratory and radiological studies were ordered. Patient was given additional liter of fluid. Patient's blood pressure return to normal. Discussed all findings and plan care of patient who is agreeable for admission. Discussed patient with Dr. Guerrero, who is in agreement with plan of care and disposition. Discussed patient with hospitalist who is agreeable to admit the patient. Patient remained stable throughout ED course. Physician Communication Physician Communication [phone] Haq, who is agreeable to admit the patient. Diagnosis Primary Impression: Syncope Qualified Codes: R55 - Syncope and collapse Additional Impression: Closed head injury Qualified Codes: S09.90XA - Unspecified injury of head, initial encounter Admitting Information Admitting Physician Requests: Observation Condition: Stable Allen Davidson May 14, 2017 19:59
[2017-05-14] MEDS ORDERED: SODIUM CHLORIDE 0.9% FLUSH 10 ML FLUSH IVF PRN (20:00)
--- NOTE | 2017-05-14 20:10 | RADRPT ---
EXAM DATE/TIME: 05/14/2017 20:01 [facility] COMPARISON: CT BRAIN W/O CONTRAST, April 03, 2015, 17:25. INDICATIONS : Possible seizure. RADIATION DOSE: 29.83 CTDIvol (mGy) MEDICAL HISTORY : Hypertension. Chronic obstructive pulmonary disease. Cardiovascular disease SURGICAL HISTORY : Tubal ligation. Hysterectomy.Cholecystectomy. ENCOUNTER: Initial ACUITY: 1 day PAIN SCALE: 3/10 LOCATION: cranial TECHNIQUE: Multiple contiguous axial images were obtained of the head. Using automated exposure control and adj ustment of the mA and/or kV according to patient size, radiation dose was kept as low as reasonably a chievable to obtain optimal diagnostic quality images. DICOM format image data is available electro nically for review and comparison. FINDINGS: CEREBRUM: The ventricles are normal for age. No evidence of midline shift, mass lesion, hemorrhage or acute in farction. No extra-axial fluid collections are seen. POSTERIOR FOSSA: The cerebellum and brainstem are intact. The 4th ventricle is midline. The cerebellopontine angle i s unremarkable. EXTRACRANIAL: The visualized portion of the orbits is intact. SKULL: The calvaria is intact. No evidence of skull fracture. CONCLUSION: Negative noncontrast CT. Chaz Ny MD on May 14, 2017 at 20:08 Board Certified Radiologist. This report was verified electronically.
[2017-05-14 20:11] LABS: AUTOMATED NEUTROPHIL # 3.8 TH/MM3 (1.8-7.7); BASOPHIL # 0.1 TH/MM3 (0-0.2); BASOPHIL % 0.9 % (0.0-2.0); EOSINOPHIL # 0.2 TH/MM3 (0-0.4); EOSINOPHIL % 2.3 % (0.0-4.0); HEMATOCRIT 35.9 % (35.0-46.0); HEMO FLAGS DIFF FINAL; LYMPH % 39.6 % (9.0-44.0); LYMPHOCYTE # 3.2 TH/MM3 (1.0-4.8); MEAN CELL VOLUME 92.8 FL (80.0-100.0); MEAN CORPUSCULAR HEMOGLOBIN 30.9 PG (27.0-34.0); MEAN CORPUSCULAR HGB CONC 33.3 % (32.0-36.0); MONO % 10.2 % (0.0-8.0); PLATELET COUNT 304 TH/MM3 (150-450); RED BLOOD COUNT 3.86 MIL/MM3 (4.00-5.30); RED CELL DISTRIBUTION WIDTH 14.2 % (11.6-17.2); WHITE BLOOD COUNT 8.1 TH/MM3 (4.0-11.0)
[2017-05-14 20:17] LABS: APTT (PATIENT) 30.2 SEC (24.3-30.1); INTERNATIONAL NORMALIZED RATIO 0.9 RATIO; PROTHROMBIN TIME - PATIENT 10.2 SEC (9.8-11.6)
[2017-05-14] MEDS ORDERED: LISI-519 PO (20:17)
[2017-05-14] MEDS ORDERED: HYDR-3534 PO (20:17)
--- NOTE | 2017-05-14 20:17 | RADRPT ---
EXAM DATE/TIME: 05/14/2017 20:01 1 [facility] COMPARISON: No previous studies available for comparison. INDICATIONS : Possible seizure. Fall. RADIATION DOSE: 12.23 CTDIvol (mGy) MEDICAL HISTORY : Hypertension. Chronic obstructive pulmonary disease. SURGICAL HISTORY : Tubal ligation. Hysterectomy.Cholecystectomy. ENCOUNTER: Initial ACUITY: 1 day PAIN SCALE: 3/10 LOCATION: Bilateral neck TECHNIQUE: Volumetric scanning of the cervical spine was performed. Multiplanar reconstructions i n the sagittal, coronal and oblique axial planes were performed. Using automated exposure control a nd adjustment of the mA and/or kV according to patient size, radiation dose was kept as low as reason ably achievable to obtain optimal diagnostic quality images. DICOM format image data is available e lectronically for review and comparison. FINDINGS: The sagittal reconstructions demonstrate normal alignment and normal prevertebral soft tissues. The d ens is intact and there is a normal atlantoaxial relationship. The axial images demonstrate that the vertebral bodies and posterior elements are intact. The soft ti ssues are within normal limits. There is no evidence of acute fracture or malalignment. CONCLUSION: Negative trauma CT. Chaz Ny MD on May 14, 2017 at 20:12 Board Certified Radiologist. This report was verified electronically.
[2017-05-14 20:19] VITALS: BP_SYST 101; BP_SYST 99; BP_DIAS 58; RESP 18; RESP 21
[2017-05-14 20:28] LABS: ANION GAP 7 MEQ/L (5-15); BICARBONATE 25.3 MEQ/L (21.0-32.0); BLOOD UREA NITROGEN 11 MG/DL (7-18); CHLORIDE 107 MEQ/L (98-107); GLOMERULAR FILTRATION RATE 68 ML/MIN (>89); POTASSIUM 3.9 MEQ/L (3.5-5.1); SODIUM (NA) 139 MEQ/L (136-145)
[2017-05-14 20:39] LABS: CREATINE KINASE 37 U/L (26-192)
--- NOTE | 2017-05-14 21:02 | RADRPT ---
EXAM DATE/TIME: 05/14/2017 20:20 [facility] COMPARISON: CHEST PA & LAT, July 31, 2010, 17:43. INDICATIONS : Syncope. Weakness. MEDICAL HISTORY : None. SURGICAL HISTORY : None. ENCOUNTER: Initial ACUITY: 1 day PAIN SCORE: 5/10 LOCATION: Bilateral chest FINDINGS: A single AP erect portable view of the chest was obtained. The study is more Midinspiratory with chipewwa ding of the lung vasculature. There are no new infiltrates or effusions. The heart and mediastinal st ructures are within normal limits. The bony thorax remains intact. Overlying electrocardiogram leads and oxygen tubing are present. CONCLUSION: No acute disease. Chaz Ny MD on May 14, 2017 at 21:00 Board Certified Radiologist. This report was verified electronically.
[2017-05-14 21:17] LABS: BLOOD, URINE TRACE (NEG); COMMENT (UR) CULT NOT INDICATED; CULTURE IF INDICATED CULT NOT INDICATED; GLUCOSE,URINE NEG (NEG); KETONE, URINE NEG (NEG); MUCUS URINE FEW /lpf (OCC); NITRITE,URINE NEG (NEG); PH, URINE 6.5 (5.0-8.5); URINE COLOR LIGHT-YELLOW (YELLW/STRAW)
[2017-05-14] MEDS ORDERED: BISACODYL 10 MG SUPP RECTAL PRN (21:30)
[2017-05-14] MEDS ORDERED: SENNOSIDES 8.6 MG TAB PO PRN (21:30)
[2017-05-14] MEDS ORDERED: SODIUM CHLORIDE 0.9% FLUSH 10 ML FLUSH IV FLUSH PRN (21:30)
[2017-05-14] MEDS ORDERED: ONDANSETRON HCL 4 MG/2 ML VIAL IVP PRN (21:30)
[2017-05-14] MEDS ORDERED: MAGNESIUM HYDROXIDE SUSP 30 ML CUP PO PRN (21:30)
[2017-05-14] MEDS ORDERED: LACTULOSE SYRUP 20 GM/30 ML CUP PO PRN (21:30)
--- NOTE | 2017-05-14 21:30 | HHI.HP ---
[facility] Service [facility] Primary Care Physician Quintin Boucher M.D. Admission Diagnosis syncope Diagnoses: (1) Syncope Diagnosis: Principal (2) Hypotension Diagnosis: Principal (3) Dehydration Diagnosis: Principal (4) Tobacco abuse Diagnosis: Principal Travel History International Travel<30 Days: No Contact w/Intl Traveler <30 Da: No Traveled to Known Affected Are: No History of Present Illness This is a 56-year-old female with a PMH of Bipolar Disorder, Anxiety, Depression , HTN, Hyperlipidemia and Tobacco Abuse who is brought to the ER by EMS secondary to syncopal event. Per patient she was sitting outside with few family members, states she got up to walk inside and felt significant lightheadedness/dizziness with subsequent syncopal episode. No previous history of similar symptoms in the past. Does state she was recently started on Lisinopril 1wk ago for HTN, otherwise no changes to medications. Denies fever, chills, chest pain or sick contacts. Per EMS, BP 50's systolic s/p IVF w / BP 70's. Upon arrival to ER, BP 99/58, HR 76, O2 sat 98% on RA, Afebrile. CBC unremarkable. Chemistry essentially unremarkable except for GFR 68. Troponin negative. INR 0.9. UA negative for UTI. Urine Drug Screen positive for Opiates, Barbiturates, Benzo and Marijuana. CT Head and CT C-Spine with no acute findings. CXR with no acute findings Review of Systems Except as stated in HPI: all other systems reviewed are Neg ROS: 14 point review of systems otherwise negative. Past Family Social History Past Medical History PMH: Bipolar Disorder, Anxiety, Depression, HTN, Hyperlipidemia and Tobacco Abuse Past Surgical History PAST SURGICAL HISTORY: Cholecystectomy, Partial Hysterectomy, Tonsillectomy, Left Oophorectomy Allergies: Coded Allergies: doxycycline (Unverified Allergy, Severe, VOMITING, 05/14/17) penicillin G (Unverified Allergy, Severe, FAMILY HISTORY ONLY! PATIENT HAS NO ACTUAL ALLERGY., 05/14/17) acetaminophen (Unverified Adverse Reaction, Severe, N&V, 05/14/17) propoxyphene (Unverified Adverse Reaction, Severe, N&V, 05/14/17) Family History PAST FAMILY HISTORY: Reviewed. No h/o DM or CAD Social History PAST SOCIAL HISTORY: Negative for alcohol or drugs. Positive for tobacco. Physical Exam Vital Signs Vital Signs Date Time Temp Pulse Resp B/P (MAP) Pulse Ox O2 Delivery O2 Flow Rate FiO2 05/14/17 20:19 73 18 99/58 (72) 74 21 101/58 (72) 05/14/17 19:52 98 Room Air 2.00 05/14/17 19:52 97.3 73 18 99/58 (72) 99 Nasal Cannula 2.00 05/14/17 19:52 71 18 98 Nasal Cannula 2.00 05/14/17 19:47 97.3 76 18 99/58 (72) 98 Physical Exam PE: GENERAL: Middle-aged white female in no acute distress. HEENT: PERRLA, EOMI. No scleral icterus or conjunctival pallor. No lid lag or facial droop. CARDIOVASCULAR: Regular rate and rhythm. No obvious murmurs to auscultation. No chest tenderness to palpation. RESPIRATORY: No obvious rhonchi or wheezing. Clear to auscultation. Breath sounds equal bilaterally. GASTROINTESTINAL: Abdomen soft, non-tender, nondistended. BS normal. MUSCULOSKELETAL: Extremities without clubbing, cyanosis, or edema. No obvious deformities. NEUROLOGICAL: Awake, alert and oriented x4. No focal neurologic deficits. Moving both upper and lower extremities spontaneously. Laboratory Laboratory Tests Test 05/14/17 19:59 05/14/17 21:00 White Blood Count 8.1 Red Blood Count 3.86 Hemoglobin 12.0 Hematocrit 35.9 Mean Corpuscular Volume 92.8 Mean Corpuscular Hemoglobin 30.9 Mean Corpuscular Hemoglobin Concent 33.3 Red Cell Distribution Width 14.2 Platelet Count 304 Mean Platelet Volume 7.5 Neutrophils (%) (Auto) 47.0 Lymphocytes (%) (Auto) 39.6 Monocytes (%) (Auto) 10.2 Eosinophils (%) (Auto) 2.3 Basophils (%) (Auto) 0.9 Neutrophils # (Auto) 3.8 Lymphocytes # (Auto) 3.2 Monocytes # (Auto) 0.8 Eosinophils # (Auto) 0.2 Basophils # (Auto) 0.1 CBC Comment DIFF FINAL Differential Comment Prothrombin Time 10.2 Prothromb Time International Ratio 0.9 Activated Partial Thromboplast Time 30.2 Blood Urea Nitrogen 11 Creatinine 0.86 Random Glucose 94 Calcium Level 7.6 Magnesium Level 2.0 Sodium Level 139 Potassium Level 3.9 Chloride Level 107 Carbon Dioxide Level 25.3 Anion Gap 7 Estimat Glomerular Filtration Rate 68 Total Creatine Kinase 37 Troponin I LESS THAN 0.02 Ethyl Alcohol Level LESS THAN 3 Urine Color LIGHT-YELLOW Urine Turbidity CLEAR Urine pH 6.5 Urine Specific [place] 1.008 Urine Protein NEG Urine Glucose (UA) NEG Urine Ketones NEG Urine Occult Blood TRACE Urine Nitrite NEG Urine Bilirubin NEG Urine Urobilinogen LESS THAN 2.0 Urine Leukocyte Esterase NEG Urine RBC 4 Urine WBC 4 Urine Mucus FEW Microscopic Urinalysis Comment CULT NOT INDICATED Urine Opiates Screen POS Urine Barbiturates Screen POS Urine Amphetamines Screen NEG Urine Benzodiazepines Screen POS Urine Cocaine Screen NEG Urine Cannabinoids Screen POS Result Diagram: 05/14/17195805/14/171958 Caprini VTE Risk Assessment Caprini VTE Risk Assessment: No/Low Risk (score <= 1) Caprini Risk Assessment Model Point Value = 1 Point Value = 2 Point Value = 3 Point Value = 5 Age 41-60 Minor surgery BMI > 25 kg/m2 Swollen legs Varicose veins or History of unexplained or recurrent spontaneous Oral contraceptives or hormone replacement Sepsis (< 1 month) Serious lung disease, including pneumonia (< 1 month) Abnormal pulmonary function Acute myocardial infarction Congestive heart failure (< 1 month) History of inflammatory bowel disease Medical patient at bed rest Age 61-74 Arthroscopic surgery Major open surgery (> 45 min) Laparoscopic surgery (> 45 min) Malignancy Confined to bed (> 72 hours) Immobilizing plaster cast Central venous access Age >= 75 History of VTE Family history of VTE Factor V Leiden Prothrombin [id number] Lupus anticoagulant Anticardiolipin antibodies Elevated serum homocysteine Heparin-induced thrombocytopenia Other congenital or acquired thrombophilia Stroke (< 1 month) Elective arthroplasty Hip, pelvis, or leg fracture Acute spinal cord injury (< 1 month) Prophylaxis Regimen Total Risk Factor Score Risk Level Prophylaxis Regimen 0-1 Low Early ambulation 2 Moderate Order ONE of the following: *Sequential Compression Device (SCD) *Heparin 5000 units SQ BID 3-4 Higher Order ONE of the following medications: *Heparin 5000 units SQ TID *Enoxaparin/Lovenox 40 mg SQ daily (WT < 150 kg, CrCl > 30 mL/min) *Enoxaparin/Lovenox 30 mg SQ daily (WT < 150 kg, CrCl > 10-29 mL/min) *Enoxaparin/Lovenox 30 mg SQ BID (WT < 150 kg, CrCl > 30 mL/min) AND/OR *Sequential Compression Device (SCD) 5 or more Highest Order ONE of the following medications: *Heparin 5000 units SQ TID (Preferred with Epidurals) *Enoxaparin/Lovenox 40 mg SQ daily (WT < 150 kg, CrCl > 30 mL/min) *Enoxaparin/Lovenox 30 mg SQ daily (WT < 150 kg, CrCl > 10-29 mL/min) *Enoxaparin/Lovenox 30 mg SQ BID (WT < 150 kg, CrCl > 30 mL/min) AND *Sequential Compression Device (SCD) Assessment and Plan Problem List: (1) Syncope ICD Code: R55 - Syncope and collapse Status: Acute (2) Hypotension ICD Code: I95.9 - Hypotension, unspecified (3) Dehydration ICD Code: E86.0 - Dehydration (4) Tobacco abuse ICD Code: Z72.0 - Tobacco use Assessment and Plan A/P: 1. Syncope: likely multifactorial-secondary to dehydration, polypharmacy and new antihypertensive medication. CT Head/C-Spine w/ no acute findings, images reviewed by me. CXR negative, images reviewed. Trop negative, EKG w/ no acute findings. Admit for Obs, telemetry. IVF for hydration. Check Echo, last Echo 11/29/07 w/ EF 64%. 2. Hypotension: BP 50's per EMS, s/p 1L IVF w/ repeat BP 70's. BP 90's upon arrival to ER, s/p IVF, currently BP 121/78, HR 73. Hold Lisinopril. IVF, monitor BP. 3. Dehydration: GFR 68, previously 105 on 11/08/16. U/a negative. IVF for hydration, repeat labs in am. 4. Tobacco Abuse: Pt counselled. NicoDerm prn if needed. 5. DVT Prophylaxis: SCD/Teds 6. Social work for d/c planning as needed. 7. Case discussed w/ ER physician at length. Problem Qualifiers (1) Syncope: Qualified Codes: R55 - Syncope and collapse Lisette Haq MD May 14, 2017 21:30
[2017-05-14 21:40] VITALS: BP 118/52; PULSE 72; RESP 18; TEMP 97.5; O2SAT 96
[2017-05-14 21:54] VITALS: BP 121/87; PULSE 87; RESP 20; O2SAT 95
[2017-05-14] MEDS: SODIUM CHLOR 0.9% 1000 ML INJ 1,000 ML IV SCH (22:00)
[2017-05-14 22:46] VITALS: PULSE 79
[2017-05-15] VITALS: BP 110/55; PULSE 76; RESP 19; TEMP 97.8; O2SAT 98
[2017-05-15 02:04] LABS: AUTOMATED NEUTROPHIL # 5.1 TH/MM3 (1.8-7.7); BASOPHIL # 0.1 TH/MM3 (0-0.2); BASOPHIL % 0.7 % (0.0-2.0); EOSINOPHIL # 0.2 TH/MM3 (0-0.4); HEMATOCRIT 32.5 % (35.0-46.0); HEMO FLAGS DIFF FINAL; LYMPH % 37.2 % (9.0-44.0); LYMPHOCYTE # 3.9 TH/MM3 (1.0-4.8); MEAN CELL VOLUME 93.2 FL (80.0-100.0); MEAN CORPUSCULAR HEMOGLOBIN 32.5 PG (27.0-34.0); MEAN CORPUSCULAR HGB CONC 34.9 % (32.0-36.0); MONO % 11.4 % (0.0-8.0); NEUT % 48.7 % (16.0-70.0); PLATELET COUNT 266 TH/MM3 (150-450); RED BLOOD COUNT 3.48 MIL/MM3 (4.00-5.30); RED CELL DISTRIBUTION WIDTH 14.1 % (11.6-17.2); WHITE BLOOD COUNT 10.4 TH/MM3 (4.0-11.0)
[2017-05-15 02:28] LABS: ALT (GPT) 16 U/L (10-53); ANION GAP 7 MEQ/L (5-15); AST (GOT) 10 U/L (15-37); BICARBONATE 26.4 MEQ/L (21.0-32.0); BLOOD UREA NITROGEN 12 MG/DL (7-18); CHLORIDE 112 MEQ/L (98-107); GLOMERULAR FILTRATION RATE 119 ML/MIN (>89); POTASSIUM 3.9 MEQ/L (3.5-5.1); SODIUM (NA) 145 MEQ/L (136-145)
[2017-05-15 02:32] LABS: ALKALINE PHOSPHATASE 83 U/L (45-117); TOTAL BILIRUBIN ADULT 0.1 MG/DL (0.2-1.0)
[2017-05-15 04:00] VITALS: BP 123/62; PULSE 63; RESP 18; TEMP 97.7; O2SAT 98
[2017-05-15] MEDS: ALPRAZolam 0.5 MG TAB PO PRN ×2 (04:23→15:08)
[2017-05-15 08:00] VITALS: BP 125/72; PULSE 67; PULSE 96; RESP 20; TEMP 97.8; O2SAT 98
[2017-05-15] MEDS: DOCUSATE SODIUM 50 MG/SENNA 8.6 MG TAB PO SCH ×2 (08:40→11:44)
[2017-05-15] MEDS: DULoxetine HCl DR 30 MG CAP PO SCH (08:40)
[2017-05-15] MEDS: SODIUM CHLOR 0.9% 1000 ML INJ 1,000 ML IV SCH (08:41)
[2017-05-15] MEDS: SODIUM CHLORIDE 0.9% FLUSH 10 ML FLUSH IV FLUSH SCH ×2 (08:41→20:01)
--- NOTE | 2017-05-15 09:13 | EKG ---
Date Performed: 05/14/2017 Time Performed: 20:21:53 PTAGE: 56 years EKG: Sinus rhythm MINIMAL ST DEPRESSION BORDERLINE ECG PREVIOUS TRACING : 11/29/2013 07.33 DOCTOR: Jhon John Interpretating Date/Time 05/15/2017 09:11:48
--- NOTE | 2017-05-15 11:22 | HHI.PR ---
Subjective Remarks Patient states her symptoms have resolved today. No longer complains of feeling dizzy or lightheaded. She denies any presyncopal or syncopal episodes since admission. Blood pressure responded well to IV fluids. Patient states she is in pain and it is "very irritated" that her pain medication has not been ordered for her. She also requests her other home medications including BuSpar , lipid to do and Lamictal. Objective Vitals Vital Signs Date Time Temp Pulse Resp B/P (MAP) Pulse Ox O2 Delivery O2 Flow Rate FiO2 05/15/17 08:00 97.8 67 20 125/72 (89) 98 05/15/17 04:00 97.7 63 18 123/62 (82) 98 05/15/17 00:00 97.8 76 19 110/55 (73) 98 05/14/17 22:46 79 05/14/17 22:07 05/14/17 21:54 87 20 121/87 (98) 95 05/14/17 21:40 97.5 72 18 118/52 (74) 96 05/14/17 20:19 73 18 99/58 (72) 74 21 101/58 (72) 05/14/17 19:52 98 Room Air 2.00 05/14/17 19:52 97.3 73 18 99/58 (72) 99 Nasal Cannula 2.00 05/14/17 19:52 71 18 98 Nasal Cannula 2.00 05/14/17 19:47 97.3 76 18 99/58 (72) 98 I/O 05/14/17 05/14/17 05/14/17 05/15/17 05/15/17 05/15/17 07:00 15:00 23:00 07:00 15:00 23:00 Intake Total 260 ml Output Total 400 ml Balance -140 ml Intake Oral 260 ml Output Urine Total 400 ml # Bowel Movements 1 Result Diagram: 05/15/1713905/15/17139 Objective Remarks GENERAL: Middle-aged white female in no acute distress. HEENT: PERRLA, EOMI. No scleral icterus or conjunctival pallor. No lid lag or facial droop. CARDIOVASCULAR: Regular rate and rhythm. No obvious murmurs to auscultation. No chest tenderness to palpation. RESPIRATORY: No obvious rhonchi or wheezing. Clear to auscultation. Breath sounds equal bilaterally. GASTROINTESTINAL: Abdomen soft, non-tender, nondistended. BS normal. MUSCULOSKELETAL: Extremities without clubbing, cyanosis, or edema. No obvious deformities. NEUROLOGICAL: Awake, alert and oriented x4. No focal neurologic deficits. Moving both upper and lower extremities spontaneously. A/P Problem List: (1) Syncope ICD Code: R55 - Syncope and collapse Status: Acute (2) Hypotension ICD Code: I95.9 - Hypotension, unspecified (3) Dehydration ICD Code: E86.0 - Dehydration (4) Tobacco abuse ICD Code: Z72.0 - Tobacco use Assessment and Plan 1. Syncope: likely multifactorial-secondary to dehydration, polypharmacy and new antihypertensive medication. CT Head/C-Spine w/ no acute findings. CXR negative. Trop negative, EKG w/ no acute findings. Patient's BP recovered well with IVF hydration, DC IVFs. Check Echo, last Echo 11/29/07 w/ EF 64%. 2. Hypotension: Resolved. Holding Lisinopril. BP wnl. 3. Dehydration: Resolved with IVFs 4. Tobacco Abuse: Pt counselled. NicoDerm prn if needed. 5. DVT Prophylaxis: SCD/Teds 6. Social work for d/c planning as needed. Discharge Planning Pending ECHO results Problem Qualifiers (1) Syncope: Qualified Codes: R55 - Syncope and collapse Malena Krishna MD R3 May 15, 2017 11:22
[2017-05-15 12:00] VITALS: BP 153/91; PULSE 65; RESP 20; TEMP 97.7; O2SAT 97
[2017-05-15] MEDS: lamoTRIgine 100 MG TAB PO SCH ×2 (12:27→20:01)
[2017-05-15] MEDS: LURASIDONE 40 MG TAB PO SCH (14:14)
[2017-05-15 16:00] VITALS: BP 139/83; PULSE 65; RESP 20; TEMP 98; O2SAT 98
--- NOTE | 2017-05-15 19:03 | ECHRPT ---
Indication: CARDIOMYOPATHY CONCLUSIONS Normal left ventricular size. Mild concentric left ventricular hypertrophy. The left ventricular systolic function is normal with an estimated ejection fraction in the range of 55-60%. No regional wall motion abnormalities are present. The left atrial size is [id number] dilated. The right atrial size is mildly dilated. No atrial level shunt is demonstrated by color flow Doppler interrogation. Trace mitral valve regurgitation. No mitral valve stenosis. No aortic valve regurgitation. Aortic valve sclerosis is present. No aortic valve stenosis. There is trace tricuspid valve regurgitation. Normal estimated pulmonary pressures. The inferior vena cava is dilated. There is less than 50% respiratory change in dimension of the inferior vena cava (abnormal). BP: 123 / 62 HR: 63 Rhythm: Sinus MEASUREMENTS (Male / Female) Normal Values Technical Quality:Fair 2D ECHO LV Diastolic Diameter PLAX 3.6 cm 4.2 - 5.9 / 3.9 - 5.3 cm LV Systolic Diameter PLAX 2.7 cm IVS Diastolic Thickness 1.0 cm 0.6 - 1.0 / 0.6 - 0.9 cm LVPW Diastolic Thickness 1.0 cm 0.6 - 1.0 / 0.6 - 0.9 cm LV Relative Wall Thickness 0.6 LVOT Diameter 1.8 cm Aortic Root Diameter 2.7 cm LA Systolic Diameter LX 2.9 cm 3.0 - 4.0 / 2.7 - 3.8 cm M-MODE AV Cusp Separation MM 1.5 cm DOPPLER AV Peak Velocity 128.0 cm/s AV Peak Gradient 6.6 mmHg AV Mean Gradient 4.0 mmHg AV Velocity Time Integral 29.2 cm LVOT Peak Velocity 80.5 cm/s LVOT Peak Gradient 2.6 mmHg LVOT Velocity Time Integral 17.1 cm LVOT Cardiac Index 1756.4 cm/minm AV Area Cont Eq vti 1.5 cm AV Area Cont Eq pk 1.6 cm Mitral E Point Velocity 74.5 cm/s Mitral A Point Velocity 62.2 cm/s Mitral E to A Ratio 1.2 LV E' Lateral Velocity 9.4 cm/s Mitral E to LV E' Lateral Ratio 8.0 LV E' Septal Velocity 9.8 cm/s Mitral E to LV E' Septal Ratio 7.6 TR Peak Velocity 236.0 cm/s TR Peak Gradient 22.3 mmHg PV Peak Velocity 45.9 cm/s PV Peak Gradient 0.8 mmHg FINDINGS LEFT VENTRICLE Normal left ventricular size. Mild concentric left ventricular hypertrophy. The left ventricular systolic function is normal with an estimated ejection fraction in the range of 55-60%. No regional wall motion abnormalities are present. Left ventricular diastolic function parameters are normal. RIGHT VENTRICLE Normal right ventricular size and systolic function. LEFT ATRIUM The left atrial size is [id number] dilated. RIGHT ATRIUM The right atrial size is mildly dilated. ATRIAL SEPTUM No atrial level shunt is demonstrated by color flow Doppler interrogation. AORTA The aortic root and proximal ascending aorta are normal in size on limited imaging. MITRAL VALVE Structurally normal mitral valve. Trace mitral valve regurgitation. No mitral valve stenosis. AORTIC VALVE No aortic valve regurgitation. Aortic valve sclerosis is present. No aortic valve stenosis. TRICUSPID VALVE Structurally normal tricuspid valve. There is trace tricuspid valve regurgitation. Normal estimated pulmonary pressures. PULMONARY VALVE No pulmonary valve regurgitation or stenosis. VESSELS The inferior vena cava is dilated. There is less than 50% respiratory change in dimension of the inferior vena cava (abnormal). PERICARDIUM No pericardial effusion. Ragini Pittman MD (Electronically Signed) Final Date:15 May 2017 19:02
[2017-05-15 20:00] VITALS: BP 115/77; PULSE 75; RESP 17; TEMP 97.4; O2SAT 95
[2017-05-15] MEDS: busPIRone HCL 5 MG TAB PO SCH (20:01)
[2017-05-15] MEDS ORDERED: PILL SPLITTER OTHER PRN (21:00)
[2017-05-16] VITALS: BP 130/71; PULSE 57; RESP 18; TEMP 97.8; O2SAT 97
[2017-05-16] MEDS: ALPRAZolam 0.5 MG TAB PO PRN ×2 (00:29→11:09)
[2017-05-16 04:00] VITALS: BP 99/61; PULSE 62; RESP 18; TEMP 97.4; O2SAT 98
[2017-05-16 08:00] VITALS: BP 158/76; PULSE 62; RESP 19; TEMP 97.2; O2SAT 98
[2017-05-16] MEDS: DOCUSATE SODIUM 50 MG/SENNA 8.6 MG TAB PO SCH (08:32)
[2017-05-16] MEDS: lamoTRIgine 100 MG TAB PO SCH (08:32)
[2017-05-16] MEDS: busPIRone HCL 5 MG TAB PO SCH (08:32)
[2017-05-16] MEDS: SODIUM CHLORIDE 0.9% FLUSH 10 ML FLUSH IV FLUSH SCH (08:32)
[2017-05-16] MEDS: DULoxetine HCl DR 30 MG CAP PO SCH (09:39)
[2017-05-16] MEDS: LURASIDONE 40 MG TAB PO SCH (09:39)
--- NOTE | 2017-05-16 11:26 | HHI.PR ---
Subjective Remarks Follow up Hypotension/syncope 05/16/17-patient seen and examined; BP improved however slightly up; Alert and oriented x 3 Objective Vitals Vital Signs Date Time Temp Pulse Resp B/P (MAP) Pulse Ox O2 Delivery O2 Flow Rate FiO2 05/16/17 08:00 97.2 62 19 158/76 (103) 98 05/16/17 04:00 97.4 62 18 99/61 (74) 98 05/16/17 00:00 97.8 57 18 130/71 (90) 97 05/15/17 20:00 97.4 75 17 115/77 (90) 95 05/15/17 16:00 98.0 65 20 139/83 (101) 98 05/15/17 12:00 97.7 65 20 153/91 (111) 97 I/O 05/15/17 05/15/17 05/15/17 05/16/17 05/16/17 05/16/17 06:59 14:59 22:59 06:59 14:59 22:59 Intake Total 260 ml 480 ml 540 ml Output Total 400 ml 700 ml Balance -140 ml 480 ml -160 ml Intake Oral 260 ml 480 ml 540 ml Output Urine Total 400 ml 700 ml # Voids 2 # Bowel Movements 1 1 Result Diagram: 05/15/17 0140 05/15/17 0140 Imaging Last Impressions Head CT 05/14/171946 Signed Impressions: Service Date/Time: Sunday, May 14, 2017 20:01 - CONCLUSION: Negative noncontrast CT. Chaz Ny MD Chest X-Ray 05/14/171946 Signed Impressions: Service Date/Time: Sunday, May 14, 2017 20:20 - CONCLUSION: No acute disease. Chaz Ny MD Cervical Spine CT 05/14/171946 Signed Impressions: Service Date/Time: Sunday, May 14, 2017 20:01 - CONCLUSION: Negative trauma CT. Chaz Ny MD Objective Remarks GENERAL: NAD SKIN: Warm and dry. HEAD: Normocephalic. EYES: No scleral icterus. No injection or drainage. NECK: Supple, trachea midline. No JVD or lymphadenopathy. CARDIOVASCULAR: Regular rate and rhythm without murmurs, gallops, or rubs. RESPIRATORY: Breath sounds equal bilaterally. No accessory muscle use. GASTROINTESTINAL: Abdomen soft, non-tender, nondistended. MUSCULOSKELETAL: No cyanosis, or edema. BACK: Nontender without obvious deformity. No CVA tenderness. Procedures none A/P Problem List: (1) Syncope ICD Code: R55 - Syncope and collapse Status: Resolved (2) Hypotension ICD Code: I95.9 - Hypotension, unspecified Status: Resolved (3) Dehydration ICD Code: E86.0 - Dehydration Status: Resolved (4) Tobacco abuse ICD Code: Z72.0 - Tobacco use Assessment and Plan 56 yrs old female with 1. Syncope: likely multifactorial-secondary to dehydration, polypharmacy and new antihypertensive medication. CT Head/C-Spine w/ no acute findings. CXR negative. Trop negative, EKG w/ no acute findings. Patient's BP recovered well with IVF hydration, DC IVFs. 2 D Echo with EF 55-60% 2. Hypotension: Resolved. Will resume Lisinopril 3. Dehydration: Resolved with IVFs 4. Tobacco Abuse: Pt counselled. NicoDerm prn if needed. Discharge Planning Discharge patient to home Condition on discharge: Improved Regular Diet as tolerated Ad Doretha activity Rx written:none Follow-up with primary care physician in 1 week Problem Qualifiers (1) Syncope: Qualified Codes: R55 - Syncope and collapse (2) Hypotension: Qualified Codes: I95.2 - Hypotension due to drugs Oj Lock MD May 16, 2017 11:26
[2017-05-16] MEDS ORDERED: LISINOPRIL 5 MG TAB PO SCH (11:30)
== END 2017-05-16 12:03 | disposition home or self-care (01) ==
LOC: NEPE 19:36 → NEDA 21:17 → UNDOADMOB 21:17 → NEDA 21:58 → N04A 21:58 → UNDODISOB 05-16 12:03
PROVIDERS: ADMIT Hospitalist; ATTEND Hospitalist
DX: R55 Syncope and collapse (principal); I95.9 Hypotension, unspecified; S09.90XA Unspecified injury of head, initial encounter; I10 Essential (primary) hypertension; E86.0 Dehydration; E78.5 Hyperlipidemia, unspecified; F31.9 Bipolar disorder, unspecified; Z72.0 Tobacco use
CPT/HCPCS: 70450; 71010; 72125; 80048; 80053; 80307; 81001; 82550; 83735; 84484; 85025; 85610; 85730; 93005; 93306; 96360; 96361; 99285; G0378; J7030

== ENCOUNTER 2017-05-25 14:35 | Emergency (ER) | payer OTHER ==
[~2017-05-25] VITALS: Ht 157.5 cm; Wt 52.2 kg
[~2017-05-25 14:35] MED LIST changes: -ACETAMINOPHEN; -BENT20TA PO; -CODEINE; +HYDR-3534 PO; +LISI-519 PO; -PROM25TA5 PO; -REST30CA PO
[2017-05-25 14:51] VITALS: BP 132/84; PULSE 100; RESP 16; TEMP 98.5; O2SAT 95
[2017-05-25] MEDS ORDERED: ROBA500T PO (14:58)
[2017-05-25] MEDS ORDERED: TRAZ100T6 PO (14:58)
[2017-05-25] MEDS ORDERED: REST15CA PO (14:58)
--- NOTE | 2017-05-25 15:20 | PD ---
HPI Chief Complaint: Musculoskeletal Complaint Time Seen by Provider: 14:54 Travel History International Travel<30 days: No Contact w/Intl Traveler<30days: No Traveled to known affect area: No History of Present Illness HPI 56-year-old female presents to the emergency room for evaluation of left foot pain and swelling and right hip pain after falling 2 days ago. Patient was trying to walk over a baby gate when she tripped and fell landing with her left foot twisted underneath her right hip. States she has been able to ambulate since then without significant difficulty. She has pain in her lateral left foot with certain range of motion. Denies radiation. Denies paresthesias. She took her prescribed Lortab without any relief in symptoms. PFSH Past Medical History Hx Anticoagulant Therapy: Yes Arthritis: No Asthma: No Autoimmune Disease: No Blood Disorders: No Bipolar Disorder: Yes Anxiety: Yes Depression: Yes Heart Rhythm Problems: No Cancer: Yes (poss cervical) Cardiovascular Problems: Yes (HTN) High Cholesterol: Yes Chemotherapy: No Chest Pain: No Congestive Heart Failure: No COPD: No Cerebrovascular Accident: No Diabetes: No Diminished Hearing: No Endocrine: No Gastrointestinal Disorders: No GERD: No Genitourinary: No Headaches: Yes Hiatal Hernia: No Hypertension: Yes Immune Disorder: No Implanted Vascular Access Dvce: Yes Kidney Stones: No Musculoskeletal: Yes (chronic neck pain) Neurologic: No Psychiatric: Yes (bi polar) Reproductive: No Respiratory: Yes (COPD) Migraines: No Radiation Therapy: No Renal Failure: No Seizures: No Sickle Cell Disease: No Sleep Apnea: No Thyroid Disease: No Ulcer: No Influenza Vaccination: No ?: Not Menopausal: Yes : 0 Ovarian Cysts: Yes (LEFT OVARY REMOVED) Tubal Ligation: Yes Past Surgical History Abdominal Surgery: Yes (gallbladder removed) AICD: No Arteriovenous Shunt: No Body Medical Devices: plate in right hand Cardiac Surgery: No Cholecystectomy: Yes Ear Surgery: No Endocrine Surgery: No Eye Surgery: No Genitourinary Surgery: No Gynecologic Surgery: No Hysterectomy: Yes (PARTIAL ) Insulin Pump: No Joint Replacement: No Neurologic Surgery: No Oral Surgery: Yes Pacemaker: No Thoracic Surgery: No Tonsillectomy: Yes Other Surgery: Yes (left ovary removed) Social History Alcohol Use: No Tobacco Use: Yes (1/2 ppd) Substance Use: No Allergies-Medications (Allergen,Severity, Reaction): Coded Allergies: doxycycline (Unverified Allergy, Severe, VOMITING, 05/14/17) penicillin G (Unverified Allergy, Severe, FAMILY HISTORY ONLY! PATIENT HAS NO ACTUAL ALLERGY., 05/14/17) acetaminophen (Unverified Adverse Reaction, Severe, N&V, 05/14/17) propoxyphene (Unverified Adverse Reaction, Severe, N&V, 05/14/17) Reported Meds & Prescriptions Reported Meds & Active Scripts Active Reported Restoril (Temazepam) 15 Mg Cap 15 Mg PO HS PRN Robaxin (Methocarbamol) 500 Mg Tab 500 Mg PO TID Trazodone (Trazodone HCl) 100 Mg Tablet 100 Mg PO HS Lisinopril 5 Mg Tab 5 Mg PO DAILY Lortab (Hydrocodone-Acetaminophen) 7.5-325 Mg Tab 1 Tab PO Q6H PRN Lyrica (Pregabalin) 150 Mg Cap 150 Mg PO BID Latuda (Lurasidone) 20 Mg Tab 20 Mg PO DAILY Lamictal (Lamotrigine) 150 Mg Tab 150 Mg PO BID Alprazolam 0.5 Mg Tab 0.5 Mg PO Q6H PRN Review of Systems Except as stated in HPI: all other systems reviewed are Neg Physical Exam Narrative GENERAL: Well-nourished, well-developed female in no acute distress. Afebrile. Ambulatory. SKIN: Focused skin assessment warm/dry. Moderate ecchymosis of the left foot. HEAD: Normocephalic. EYES: No scleral icterus. No injection or drainage. NECK: Supple, trachea midline. No JVD or lymphadenopathy. CARDIOVASCULAR: Regular rate and rhythm without murmurs, gallops, or rubs. RESPIRATORY: Breath sounds equal bilaterally. No accessory muscle use. MSK: 2+ dorsalis pedis pulse. Full range of motion of the ankle and foot. Less than 2 second capillary refill distally. Extreme edema of the left foot. Mild to moderate tenderness to palpation of the fifth metatarsal. Data Data Last Documented VS Vital Signs Date Time Temp Pulse Resp B/P (MAP) Pulse Ox O2 Delivery O2 Flow Rate FiO2 05/25/17 14:51 98.5 100 16 132/84 (100) 95 Orders Orders Foot, Complete ([id number]) (05/25/17 ) [facility] Medical Decision Making Medical Screen Exam Complete: Yes Emergency Medical Condition: Yes Medical Record Reviewed: Yes Differential Diagnosis Sprain, strain, fracture, dislocation Narrative Course 56-year-old female presents to the emergency room for evaluation of left foot pain and swelling and right hip pain after trip and fall 2 days ago. Patient landed with her left foot twisted underneath her right hip. She has been able to ambulate without difficulty. She denies paresthesias. Physical exam reveals left lower extremity is neurovascularly intact with 2+ dorsalis pedis pulse. Full range of motion. Moderate to severe edema and ecchymosis. Patient has no rotation or shortening of the right leg. There is mild tenderness to palpation over the right lateral pelvis. X-ray of the foot shows no acute bony abnormality. Patient placed in Pato wrap and told to take ibuprofen for pain. Discharged with orthopedic instructions and told to follow up with primary care physician or return for worsening symptoms. She understands and agrees to plan. Diagnosis Primary Impression: Sprain of left foot Qualified Codes: S93.602A - Unspecified sprain of left foot, initial encounter Referrals: Primary Care Physician Additional Instructions: Take ibuprofen with food as directed, as needed for pain. Apply ice to the affected area for 20 minutes at a time, as needed for pain and swelling. Follow-up with a primary care physician. Return to the emergency room for worsening symptoms. Disposition: 01 DISCHARGE HOME Condition: Stable Adwoa Sylvester May 25, 2017 15:20
--- NOTE | 2017-05-25 15:55 | RADRPT ---
EXAM DATE/TIME: 05/25/2017 15:18 [place] COMPARISON: No previous studies available for comparison. INDICATIONS : Left foot pain. Patient injuerd foot trying to climb over a gate. MEDICAL HISTORY : None. SURGICAL HISTORY : None. ENCOUNTER: Initial ACUITY: 3 days PAIN SCORE: 8/10 LOCATION: Left lateral foot. FINDINGS: Three view examination of the left foot demonstrates no soft tissue swelling, dislocation, or fractur e. The tarsal bones appear intact. The interphalangeal and metatarsophalangeal joints are intact. The calcaneus is intact. Bony mineralization is normal. CONCLUSION: Negative for fracture or dislocation. Follow up in 7-10 days is suggested if symptoms persist. Dariel Wright MD FACR on May 25, 2017 at 15:53 Board Certified Radiologist. This report was verified electronically.
== END 2017-05-25 16:15 | disposition home or self-care (01) ==
LOC: PHEFT 14:35
DX: S93.602A Unspecified sprain of left foot, initial encounter (principal); M25.551 Pain in right hip; I10 Essential (primary) hypertension; E78.00 Pure hypercholesterolemia, unspecified; F17.200 Nicotine dependence, unspecified, uncomplicated; Z79.01 Long term (current) use of anticoagulants; Z86.59 Personal history of other mental and behavioral disorders; Z86.79 Personal history of other diseases of the circulatory system; Z87.39 Personal history of other diseases of the musculoskeletal system and connective tissue; W01.0XXA Fall on same level from slipping, tripping and stumbling without subsequent striking against object, initial encounter
CPT/HCPCS: 73630; 99283